=== PATIENT | female | born 1935 | race African-American/Black ===

== ENCOUNTER 2019-07-31 17:08 | Inpatient (IN) | payer OTHER ==
--- NOTE | 2019-07-31 17:26 | PDOC ---
History of Present Illness - General Stated Complaint: R/O STROKE Time Seen by Provider: 07/31/19 17:25 - History of Present Illness Initial Comments: HPI: 83yo F with PMH of HTN, DM, CVA with residual left sided weakness presenting with two episodes of syncope. Around 5:30pm, patient was speaking with her daughter on the phone when she suddenly felt room-spinning dizzines and was next found by her granddaughter on the floor. Patient was able to pick herself up and make her way to the bathroom. She next found herself slumped on the toilet after what was likely a syncopal episode. Her family member states they heard a loud "bump". Patient is feeling at her baseline. Denies shortness of breath and chest pain. No fevers or chills. PCP: Dr. Macario RAM: Constitutional: no fever, no chills HEENT: no throat pain, no dysphagia Cardiovascular: no chest pain, no palpitations Respiratory: no cough, no shortness of breath Gastrointestinal: no abdominal pain, no nausea Genitourinary: no dysuria, no hematuria Musculoskeletal: no myalgia, no arthralgia Skin: no rash, no itching Neurologic: +syncope, +dizziness Psych: no agitation, no anxiety PE: General: Awake, alert, and fully oriented, in no acute distress Head: No signs of trauma Eyes: EOMI, sclera anicteric ENT: Moist mucus membranes Neck: Normal ROM, supple Lungs: Lungs clear, Normal breath sounds Cardio: Regular rhythm, S1 and S2 present Abdomen: Soft, nontender Extremities: Normal range of motion, Distal pulses present SKIN: Warm, Dry, normal turgor Neurologic: Ptosis on right. Droop in smile on left side. Normal speech, sensation, strength, coordination, and gait. Please see NIHSS. ED Course/MDM: DDX includes but not limited to vasovagal syncope, cardiogenic syncope, metabolic syncope, neurogenic syncope, postural syncope, CVA, seizure NIHSS 2 Tpa exclusion criteria: symptoms are too mild Orthostatics Laying BP 117/72, HR 49 Sitting BP 118/60, HR 48 Standing BP 98/74, HR 52 EKG: rate 51, QTc 387, bradycardia, twi in V1/V2 (no previous EKGs) 07/31/19 17:26 Call to patient's grandson's , Will bring patient's medications 07/31/19 18:07 Patient with questionable facial droop on the left Dr Max spoke with Dr. Dinero; consult placed He will evaluate the patient tomorrow Treat orthostatic hypotension No ASA recommended Hold BP medications 07/31/19 18:27 CBC WBC 9.6 K/mm3 (4.0-10.0) 07/31/19 17:50 RBC 4.15 M/mm3 (3.60-5.2) 07/31/19 17:50 Hgb 11.2 GM/dL (10.7-15.3) 07/31/19 17:50 Hct 34.9 % (32.4-45.2) 07/31/19 17:50 MCV 84.1 fl (80-96) 07/31/19 17:50 MCH 27.1 pg (25.7-33.7) 07/31/19 17:50 MCHC 32.2 g/dl (32.0-36.0) 07/31/19 17:50 RDW 14.8 % (11.6-15.6) 07/31/19 17:50 Plt Count 398 K/MM3 (134-434) 07/31/19 17:50 MPV 8.9 fl (7.5-11.1) 07/31/19 17:50 Absolute Neuts (auto) 6.8 K/mm3 (1.5-8.0) 07/31/19 17:50 Neutrophils % 71.2 % (42.8-82.8) 07/31/19 17:50 Lymphocytes % 22.2 % (8-40) 07/31/19 17:50 Monocytes % 4.7 % (3.8-10.2) 07/31/19 17:50 Eosinophils % 0.9 % (0-4.5) 07/31/19 17:50 Basophils % 1.0 % (0-2.0) 07/31/19 17:50 Nucleated RBC % 0 % (0-0) 07/31/19 17:50 No leukocytosis CMP Sodium 135 mmol/L (136-145) L 07/31/19 17:50 Potassium 5.2 mmol/L (3.5-5.1) H 07/31/19 17:50 Chloride 99 mmol/L (98-107) 07/31/19 17:50 Carbon Dioxide 26 mmol/L (21-32) 07/31/19 17:50 Anion Gap 9 MMOL/L (8-16) 07/31/19 17:50 BUN 26.8 mg/dL (7-18) H 07/31/19 17:50 Creatinine 1.6 mg/dL (0.55-1.3) H 07/31/19 17:50 Est GFR (CKD-EPI)AfAm 34.66 07/31/19 17:50 Est GFR (CKD-EPI)NonAf 29.91 07/31/19 17:50 Random Glucose 264 mg/dL (74-106) H 07/31/19 17:50 Calcium 9.9 mg/dL (8.5-10.1) 07/31/19 17:50 Total Bilirubin 0.3 mg/dL (0.2-1) 07/31/19 17:50 AST 62 U/L (15-37) H 07/31/19 17:50 ALT 53 U/L (13-61) 07/31/19 17:50 Alkaline Phosphatase 54 U/L (45-117) 07/31/19 17:50 Creatine Kinase 147 U/L (26-192) 07/31/19 17:50 Troponin I < 0.02 ng/ml (0.00-0.05) 07/31/19 17:50 Total Protein 8.4 g/dl (6.4-8.2) H 07/31/19 17:50 Albumin 3.6 g/dl (3.4-5.0) 07/31/19 17:50 TSH 0.48 uIU/ml (0.358-3.74) 07/31/19 17:50 K mildly elevated, but slightly hemolyzed Cr elevated, unknown baseline Tpn undetectable TSH normal Family members are at the bedside. Patient's grandson's , Janice Diaz, states that the patient's smile is at baseline 07/31/19 19:31 Patient signed out to Dr. Tavares and night team 07/31/19 19:37 CT head and cspine as reported by imaging it service continuity supervisor: "FINDINGS: Age-related intracranial volume loss. No midline shift. Chronic microangiopathic ischemic changes in the white matter. Intracranial atherosclerosis. No acute intracranial hemorrhage or any abnormal acute extra-axial fluid collections. Rounded calcific density in the posterior medial left occipital lobe which may represent a calcified meningioma. Dural calcification seen in the left side more superiorly. Intact osseous calvarium. Clear mastoids and middle ear cavities. IMPRESSION: 1. No acute traumatic intracranial or osseous abnormality. 2. Probable calcified meningioma in the left posterior medial occipital lobe. 3. Chronic microangiopathic ischemic changes in the white matter. 4. Intracranial atherosclerosis. One or more of the following dose reduction techniques were used: automated exposure control, adjustment of the mA and/or kV according to patient size, use of iterative reconstructive technique. THIS DOCUMENT HAS BEEN ELECTRONICALLY SIGNED India Spears MD 07/31/2019 19:21 EST" Discussed case with Dr. Hank Shane who accepted patient for admission under Dr. Giang 07/31/19 20:01 tPA Exclusion Checklist 0-3hr - Time Elapsed Date last known well: 07/31/19 Time last known well: 16:30 Elaspsed time: Day(s) and 3 Hour(s) and 32 Minutes - Thrombolytic Therapy Candidate Is the patient eligible for Thrombolytic Therapy?: No - Relative Exclusion Criteria 0-3h Stroke severity too mild: Yes - Ineligibility reason(s) Reasons No tPA given: See reason(s) noted above NIH Stroke Scale - Last Known Well Date/Time & Onset Date Last Known Well: 07/31/19 Time Last Known Well: 16:30 - Initial Evaluation Level of consciousness: Alert Ask patient the month and their age: Answers both correctly Ask patient to open & close eyes; make fist and let go: Obeys both correctly Best gaze (horizontal eye movement): Normal Visual field testing: Partial hemianopia Facial paresis (Show teeth/raise eyebrows/close eyes tight): Minor paralysis ( flattened nasolabial fold, asymmetry on smiling) Motor Function: Left Arm: Normal Motor Function: Right Arm: Normal (extends arm 90 (or 45) degrees for 10 seconds without drift Motor Function: Left Leg: Normal (extends leg 30 degrees for 5 seconds without drift) Motor Function: Right Leg: Normal (extends leg 30 degrees for 5 seconds without drift) Limb Ataxia: No ataxia Sensory(Use pinprick test arms,legs,trunk,face/side to side): Normal Best language (Describe picture, name items, read sentences): No Aphasia Dysarthria (read several words): Normal articulation Extinction and Inattention: No abnormality - Total Score NIH Stroke Scale Score: 2 Past History - Past Medical History Allergies/Adverse Reactions: Allergies Allergy/AdvReac Type Severity Reaction Status Date / Time No Known Allergies Allergy Verified 07/31/19 17:33 ED Treatment Course - LABORATORY CBC & Chemistry Diagram: 07/31/19 17:50 07/31/19 17:50 Discharge - Discharge Information Problems reviewed: Yes Clinical Impression/Diagnosis: Syncope and collapse Condition: Guarded - Admission Yes - Follow up/Referral Referrals: ON STAFF,NOT [Primary Care Provider] - - Patient Discharge Instructions - Post Discharge Activity
[2019-07-31] MEDS ORDERED: SODIUM CHLORIDE 500 ML IV STA (17:54)
[2019-07-31 18:14] LABS: EOS % 0.9 % (0-4.5); HEMATOCRIT 34.9 % (32.4-45.2); HEMOGLOBIN 11.2 GM/dL (10.7-15.3); LYMPH % 22.2 % (8-40); MCH 27.1 pg (25.7-33.7); MCHC 32.2 g/dl (32.0-36.0); MEAN CELL VOLUME 84.1 fl (80-96); MEAN PLT VOLUME 8.9 fl (7.5-11.1); MONO % 4.7 % (3.8-10.2); NEUT % 71.2 % (42.8-82.8); PLATELET COUNT 398 K/MM3 (134-434); RBC 4.15 M/mm3 (3.60-5.2); RDW 14.8 % (11.6-15.6); WHITE BLOOD COUNT 9.6 K/mm3 (4.0-10.0)
--- NOTE | 2019-07-31 18:16 | PDOC ---
Documentation entered by Carrie Eastman SCRIBE, acting as scribe for Yolis Max DO. Yolis Max DO: This documentation has been prepared by the samibe, Carrie Eastman SCRIBE, under my direction and personally reviewed by me in its entirety. I confirm that the documentation accurately reflects all work, treatment, procedures, and medical decision making performed by me. Attending Attestation - Resident Resident Name: Veronica Padron - ED Attending Attestation I have performed the following: I have examined & evaluated the patient, The case was reviewed & discussed with the resident, I agree w/resident's findings & plan, Exceptions are as noted - HPI HPI: 07/31/19 18:19 The patient is an 83-year-old female with a past medical history significant for CVA with residual left facial droop who presents to the emergency department via EMS s/p two syncopal episode. The patient reports she felt lightheaded and dizzy, followed by a witnessed syncopal episode by the family. The patient was able to stand up, then she went to the bathroom. The family reports they heard a thud and found the patient syncopized on the toilet. Denies shortness of breath or chest pain. Allergies: NKA - Physicial Exam PE: 07/31/19 18:27 Constitutional: Awake, alert, oriented. No acute distress. Head: Normocephalic. Atraumatic Eyes: PERRL. EOMI. Conjunctivae are not pale. ENT: Mucous membranes are moist and intact. Posterior pharynx without exudates or erythema. Uvula midline. Neck: Supple. Full ROM. No lymphadenopathy. Cardiovascular: +bradycardic, Orthostatic hypertension positive. Regular rhythm. Pulmonary/Chest: No evidence of respiratory distress. Clear to auscultation bilaterally No wheezing, rales or rhonchi. Abdominal: Soft and non-distended. There is no tenderness. No rebound, guarding or rigidity. No organomegaly. No palpable masses. Good bowel sounds. Back: No CVA tenderness. Musculoskeletal: No edema. No cyanosis. No clubbing. Full range of motion in all extremities. Nocalf tenderness. Radial/pedal pulses are intact and 2+ bilaterally Skin: Skin is warm and dry. No petechiae. No purpura. Neurological: +slight left facial droop from prior CVA. Alert and oriented to person, place, and time. Normal speech. Strength is grossly symmetric. No sensory deficits. Psychiatric: Good eye contact. Normal interaction, affect and behavior. - Medical Decision Making 07/31/19 18:14 a/p: 83yo female with 2 syncopal episodes today -pt had 2 witnessed syncopal episodes -pt with ptosis R eye and poss L facial droop -prior hx of cva -pt with muscle strength 5/5 UE and LE -sensation intact -orthostatic hypotension- will order ivf hydration -resident discussed the case with Ms. Solo the granddaughter in law who is coming to the ER -head ct and c spine ordered -will send labs -ivf hydration 07/31/19 18:29 pt with hx of prior cva only neuro findings in L facial droop case discussed with Dr. nesbitt- pt to ct syncope was at 530 no tpa at this time, treat hypotension, hold bp meds he will see patient in consult 07/31/19 18:53 cr 1,6 07/31/19 18:[address] with calcifications, pending official read pt will need to stay in the hospital for further eval of syncope x 2, ivf hydration, neuro eval tomorrow
[2019-07-31 18:45] LABS: ALBUMIN 3.6 g/dl (3.4-5.0); ALK PHOS 54 U/L (45-117); ANION GAP 9 MMOL/L (8-16); BILIRUBIN,TOTAL 0.3 mg/dL (0.2-1); BLOOD UREA NITROGEN 26.8 mg/dL (7-18); CALCIUM 9.9 mg/dL (8.5-10.1); CHLORIDE 99 mmol/L (98-107); CO2 26 mmol/L (21-32); CREATININE 1.6 mg/dL (0.55-1.3); GLUCOSE,RANDOM 264 mg/dL (74-106); POTASSIUM 5.2 mmol/L (3.5-5.1); SGOT/AST 62 U/L (15-37); SGPT/ALT 53 U/L (13-61); SODIUM 135 mmol/L (136-145); TOT PROT 8.4 g/dl (6.4-8.2)
--- NOTE | 2019-07-31 20:04 | PN ---
Teaching Attending Note Name of Resident: Amaury Donaldson ATTENDING PHYSICIAN STATEMENT I saw and evaluated the patient. I reviewed the resident's note and discussed the case with the resident. I agree with the resident's findings and plan as documented. 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 Around 5:30 pm, patient was speaking with her daughter on the phone when she suddenly felt room-spinning, had dizziness and was next found by her granddaughter on the floor. Patient was able to pick herself up and make her way to the bathroom. She next found herself slumped on the toilet after what was likely a syncopal episode. Her family member states they heard a loud "bump". Patient is feeling at her baseline. Denies shortness of breath and chest pain. No fevers or chills. Has a walker and cane, but ambulates at home without assistance. Denies alcohol, tobacco or illicit drug use. No sick contacts or recent travels. Feeling hungry and wants to eat. OBJECTIVE: Alert and orthostatic Vital Signs Period Temp Pulse Resp BP Sys/[place] Pulse Ox Last 24 Hr 97.2 F 51 16 126/57 98-100 HEENT: No Jaundice, eye redness or discharge, Left facial droop; Right eye ptosis and blindness. Normocephalic, atraumatic. External ears are normal and hearing is grossly intact. No nasal discharge. Neck: Supple, nontender. No palpable adenopathy or thyromegaly. No JVD Chest: Good effort. Clear to auscultation and percussion. Heart: Regular. No S3, rub or murmur Abdomen: Not distended, soft, nontender and no HSM. No rebound or guarding. Normal bowel sounds. Ext: Peripheral pulses intact. No leg edema. Skin: Warm and dry. No petechiae, rash or ecchymosis. Neuro: Alert. Oriented x3. CN 2-12 grossly intact. Sensation grossly intact in all four extremities and DTR are symmetric. Psych: Appropriate mood and affect. Good insight. Abnormal Lab Results 07/31/19 17:50 Sodium 135 L Potassium 5.2 H BUN 26.8 H Creatinine 1.6 H Random Glucose 264 H AST 62 H Total Protein 8.4 H ASSESSMENT AND PLAN: 1. Syncope - Etiology unclear. No acute abnormality on head CT or C-spine CT. Calcified meningioma and goiter with ?tracheal impingement noted. CXR shows cardiomegaly, hilar prominence and blunted left costophrenic angle. EKG shows junctional rhythm at 51/minute and no significant ST-T wave changes. Initial troponin is negative. Will admit to telemetry, do speech and swallow evaluation , get urinalysis, ECHO, carotid doppler, brain MRI, consult Neurology, Cardiology and PT. Do neurochecks. Implement seizure, fall and aspiration precautions. Will get thyroid sonogram, TFT and consult Endocrine. Will continue comprehensive care for all of patients comorbid conditions. 2. Uncontrolled DM For now, we will hold the home diabetes drugs and implement sliding scale insulin regimen. Provide comprehensive diabetes care with patient teaching and counseling about the importance of adherence to prescribed diabetes regimen, euglycemia, eye care and foot care. 3. CKD? - Has risk factors for CKD. Will get CPK, kidney sonogram, PTH and phosphate. 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 Should improve with correction of hyperglycemia and hydration. Got 500 ml of IV NS in the ER. Will encourage liberal oral fluid intake and monitor urine output. Will consult nephrology and avoid nephrotoxic agents such as NSAIDS, aminoglycosides, contrast dyes and certain Alternative medicine products. 4. Obesity Counseled on the risks associated with obesity. Will provide patient all the necessary assistance, counseling and positive reinforcement to facilitate weight loss. Consult rental management trainee. 5. Hypertension - Restart suitable outpatient antihypertensive drugs when clinically appropriate. Revise regimen to ensure [id number] excellent BP control and financial services counselor patient on the injurious effects of uncontrolled hypertension. Nonpharmacologic measures to control hypertension like weight loss , salt restriction and exercise discussed. Importance of adherence to treatment regimen and attainment of normotension emphasized. 6. DVT prophylaxis - Lovenox 40 mg SQ q 24 hours. 7. Advance directives - Full code
--- NOTE | 2019-07-31 20:46 | HP ---
CHIEF COMPLAINT: Presyncope and syncopal episode today PCP: Dr. Rodriguez HISTORY OF PRESENT ILLNESS: This is an 83 year old female with PMH of HTN, DM, CVA (with residual L sided weakness). She presented to the ER with complaints of 1 episode of presyncope and 1 episode of syncope within a few minutes of each other. As per the patient , she was in the kitchen at around 4PM with her grand daughter, when she suddenly began to feel diaphoretic and dizzy. She then fell down, not losing consciousness and without hitting her head, although she admits that she does not remember the event in detail. According to the grand daughter, who's back was turned to the patient during the incident, she heard a loud 'thud' behind her and suspects that her grand mother did hit her head as she fell. The patient denies any pain in her head, hands, or any part of her body. After the fall, she got back up and walked to the bathroom. She seated herself on the commode in order to defecated. She then felt dizzy and weak, and leaned over to the sink in order to rest her head. She then remembers being fond by her grand daughter again. She then cleaned up, and went to her bedroom to rest. Upon returning home, the daughter insisted that the patient be taken to the ER, even though she stated that she felt fine. As per the patient, before coming to the ER she walked down 3 flights of stairs by herself to the car without any symptoms. At the ER, she reports no dizziness, diaphoresis, nausea, vomiting, constipation, chest pain, palpitations, SOB, light headedness, headaches, dysuria, urgency, hematuria, recent illnesses, recent travel, or sick contacts. She had a hemorrhagic stroke in 2012, and reports feeling weak at the time. She was admitted at [facility] for 1 month at the time, and has residual left sided weakness as per the patient. She reports a right sided facial injury many years ago in [place] when she was very young, which left her with asymmetrical facial expressions. She has had a hysterectomy in the past. She denies any family history of heart disease, strokes, or cancer. She lives with her daughter , and denies ever smoking, drinking, or using recreational drugs. ER course was notable for: (1) CT Head: Calcififed meningioma in left occipital lobe (2) C Spine shows osteophyte impingement and left lobe goiter (3) BUN/Cr 26.8/1.6 Recent Travel: Denies PAST MEDICAL HISTORY: HTN, DM, CVA PAST SURGICAL HISTORY: Hysterectomy Social History: Smoking: denies Alcohol: denies Drugs: denies Allergies No Known Allergies Allergy (Verified 07/31/19 17:33) HOME MEDICATIONS: REVIEW OF SYSTEMS CONSTITUTIONAL: Absent: fever, chills, diaphoresis, generalized weakness, malaise, loss of appetite, weight change HEENT: Absent: rhinorrhea, nasal congestion, throat pain, throat swelling, difficulty swallowing, mouth swelling, ear pain, eye pain, visual changes CARDIOVASCULAR: Absent: chest pain, syncope, palpitations, irregular heart rate, lightheadedness , peripheral edema RESPIRATORY: Absent: cough, shortness of breath, dyspnea with exertion, orthopnea, wheezing, stridor, hemoptysis GASTROINTESTINAL: Absent: abdominal pain, abdominal distension, nausea, vomiting, diarrhea, constipation, melena, hematochezia GENITOURINARY: Absent: dysuria, frequency, urgency, hesitancy, hematuria, flank pain, genital pain MUSCULOSKELETAL: Absent: myalgia, arthralgia, joint swelling, back pain, neck pain SKIN: Absent: rash, itching, pallor HEMATOLOGIC/IMMUNOLOGIC: Absent: easy bleeding, easy bruising, lymphadenopathy, frequent infections ENDOCRINE: Absent: unexplained weight gain, unexplained weight loss, heat intolerance, cold intolerance NEUROLOGIC: Absent: headache, focal weakness or paresthesias, dizziness, unsteady gait, seizure, mental status changes, bladder or bowel incontinence PSYCHIATRIC: Absent: anxiety, depression, suicidal or homicidal ideation, hallucinations. PHYSICAL EXAMINATION Vital Signs - 24 hr 07/31/19 07/31/19 17:10 17:37 Temperature 97.2 F L Pulse Rate 51 L Respiratory 16 Rate Blood Pressure 126/57 L O2 Sat by Pulse 100 98 Oximetry (%) GENERAL: AOx3, cooperative HEAD: Normal with no signs of trauma. EYES: Rt. sided corneal clouding, blind in Rt eye, left eye reactive to light, EOMI intact EARS, NOSE, THROAT: Ears normal, nares patent, oropharynx clear without exudates. Moist mucous membranes. LUNGS: Breath sounds equal, clear to auscultation bilaterally. No wheezes, and no crackles. No accessory muscle use. HEART: Bradycardic, regular rhythm, normal S1 and S2 without murmur, rub or gallop. ABDOMEN: Soft, nontender, not distended, normoactive bowel sounds, no guarding, no rebound, no masses. No hepatomegaly or splenomegaly. MUSCULOSKELETAL: Normal range of motion at all joints. No bony deformities or tenderness. No CVA tenderness. UPPER EXTREMITIES: 2+ pulses, warm, well-perfused. No cyanosis. No clubbing. No peripheral edema. LOWER EXTREMITIES: 2+ pulses, warm, well-perfused. No calf tenderness. No peripheral edema. NEUROLOGICAL: Motor 5/5, sensations intatc PSYCHIATRIC: Cooperative. Good eye contact. Appropriate mood and affect. SKIN: Warm, dry, normal turgor, no rashes or lesions noted, normal capillary refill. Laboratory Results - last 24 hr 07/31/19 07/31/19 07/31/19 17:50 17:50 17:50 WBC 9.6 RBC 4.15 Hgb 11.2 Hct 34.9 MCV 84.1 MCH 27.1 MCHC 32.2 RDW 14.8 Plt Count 398 MPV 8.9 Absolute Neuts (auto) 6.8 Neutrophils % 71.2 Lymphocytes % 22.2 Monocytes % 4.7 Eosinophils % 0.9 Basophils % 1.0 Nucleated RBC % 0 PT with INR Cancelled INR Cancelled Sodium 135 L Potassium 5.2 H Chloride 99 Carbon Dioxide 26 Anion Gap 9 BUN 26.8 H Creatinine 1.6 H Est GFR (CKD-EPI)AfAm 34.66 Est GFR (CKD-EPI)NonAf 29.91 Random Glucose 264 H Calcium 9.9 Total Bilirubin 0.3 AST 62 H ALT 53 Alkaline Phosphatase 54 Creatine Kinase 147 Troponin I < 0.02 Total Protein 8.4 H Albumin 3.6 TSH 0.48 ASSESSMENT/PLAN: 83 year old female with PMH of HTN, DM, CVA (with residual L sided weakness). She presented to the ER with complaints of 1 episode of presyncope and 1 episode of syncope within a few minutes of each other earlier today. #Syncope - Syncope vs other causes of LOC - Syncopal causes: reflex, structural cardiac, arrhythmia, orthostatic - Structural: Echo ordered to r/o cardiac functional/structural causes, no previous echo to compare to BNP ordered, studies suggest BNP may be predictive of those at risk for adverse outcomes following syncope - Orthostatic: Orthostatics: Positive, Supine: 117/72 HR 49, Sitting 118/60 48, Standin/74 HR 52, may have been 2/2 orthostatic hypotension - Arrythmia: EKG 51BPM, bradycardia, syncope may have been 2/2 AV block - Reflex: Prodrome of diaphoresis and dizziness was positive, along with increased vasovagal tone during defecation in patient - Other causes: head trauma, seizures, intoxications, or metabolic disorders - Trauma: No history of recent trauma and CT was clear. Brain MRI ordered, speech and swallow eval ordered - Seizures: Pt experienced no aura, post ictal symptoms, abnormal movements, seizure unlikely - Intoxicants: Patient denies any new meds - Metabolic disorders: Na 135 and K 5.2, slightly out of normal range, no signs of hypoxia, hyperventilation with hypocapnia, unlikely to cause syncope - CT Head: Calcified meningioma in L occipital lobe - CT C-spine: L lobe goiter, osteophyte impingement - Neuro consulted #Bradycardia - EKG: - Might be causing syncope - Echo ordered - Cardio consulted #Goiter - Incidental finding of L lobe goiter on CT C spine - TSH ordered - Thyroid US outpatient - Endo consulted #Osteophyte impingement - Incidental finding of CT C-spine - Pt denies any numbness, tingling - Neurosurgery consulted #CKD - BUN/Cr 26.8/1.6 - No prior records to compare with - UA pending - Renal US ordered - Nephro consult placed #Hx of HTN - Resume home meds once confirmed IF required (patient bradycardic with low diastolic BP at the moment) #Hx of DM - BGM and ISS ACHS started - HbA1c ordered #Elevated AST - Mild elevation with negative exam findings and no symptoms - Will monito and order Liver US #FEN - Na 135, will monitor - K 5.2, will monitor - Na controlled diet started #DVT - Lovenox 40mg Visit type - Emergency Visit Emergency Visit: Yes ED Registration Date: 07/31/19 Care time: The patient presented to the Emergency Department on the above date and was hospitalized for further evaluation of their emergent condition. - New Patient This patient is new to me today: Yes Date on this admission: 08/01/19 - Critical Care Critical Care patient: No ATTENDING PHYSICIAN STATEMENT I saw and evaluated the patient. I reviewed the resident's note and discussed the case with the resident. I agree with the resident's findings and plan as documented. SUBJECTIVE: OBJECTIVE: ASSESSMENT AND PLAN:
[2019-07-31 21:12] LABS: EPI CELLS 23.8 /HPF (0-5/HPF); HYALINE CASTS 31 /lpf (0-8); PH,URINE 6.5 (5.0-8.0); URINE APPEARANCE TURBID; URINE BILIRUBIN NEGATIVE (NEGATIVE); URINE COLOR YELLOW; URINE GLUCOSE (UA) NEGATIVE (NEGATIVE); URINE KETONE TRACE (NEGATIVE); URINE LEUK ESTERASE 3+ (NEGATIVE); URINE NITRITE NEGATIVE (NEGATIVE); URINE PROTEIN 1+ (NEGATIVE); URINE RBC 5 /hpf (0-4); URINE UROBILINOGEN 0.2 mg/dL (0.2-1.0); URINE WBC 78 /hpf (0-5)
[2019-07-31 21:59] LABS: URINE CRYSTALS NEGATIVE /hpf; YEAST NEGATIVE (NEGATIVE)
[2019-07-31 22:00] LABS: URINE BACTERIA 50 /hpf (NEGATIVE)
[2019-07-31] MEDS: SODIUM CHLORIDE 1,000 ML IV SCH (22:45)
[2019-07-31] MEDS: INSULIN SLIDING SCALE (NOVOLOG) 1 VIAL SQ SCH (23:12)
[2019-07-31] MEDS ORDERED: INSULIN (NOVOLOG) ASPART 100 UNITS/ML 10ML VIAL ONE (23:14)
[2019-08-01 06:25] LABS: BASO % 0.7 % (0-2.0); HEMATOCRIT 32.4 % (32.4-45.2); HEMOGLOBIN 10.6 GM/dL (10.7-15.3); LYMPH % 31.9 % (8-40); MCHC 32.6 g/dl (32.0-36.0); MEAN CELL VOLUME 82.8 fl (80-96); MEAN PLT VOLUME 8.4 fl (7.5-11.1); MONO % 6.7 % (3.8-10.2); NEUT % 59.7 % (42.8-82.8); PLATELET COUNT 340 K/MM3 (134-434); RBC 3.91 M/mm3 (3.60-5.2); RDW 14.6 % (11.6-15.6); WHITE BLOOD COUNT 8.3 K/mm3 (4.0-10.0)
[2019-08-01 06:47] LABS: ALBUMIN 3.5 g/dl (3.4-5.0); BILIRUBIN,TOTAL 0.4 mg/dL (0.2-1); CALCIUM 9.8 mg/dL (8.5-10.1); CREATININE 1.1 mg/dL (0.55-1.3); MAGNESIUM 1.7 mg/dL (1.8-2.4); PHOSPHOROUS 3.1 mg/dL (2.5-4.9); POTASSIUM 3.6 mmol/L (3.5-5.1); TOT PROT 7.6 g/dl (6.4-8.2)
--- NOTE | 2019-08-01 09:12 | EKG ---
Test Reason : Blood Pressure : / mmHG Vent. Rate : 082 BPM Atrial Rate : 082 BPM P-R Int : 180 ms QRS Dur : 100 ms QT Int : 374 ms P-R-T Axes : 061 028 019 degrees QTc Int : 436 ms NORMAL SINUS RHYTHM NORMAL ECG WHEN COMPARED WITH ECG OF 31-JUL-2019 17:22, SINUS RHYTHM HAS REPLACED JUNCTIONAL RHYTHM VENT. RATE HAS INCREASED BY 31 BPM Confirmed by Sonal Alarcon ([id number]) on 08/01/2019 9:12:10 AM Referred By: Confirmed By:Sonal Alarcon
--- NOTE | 2019-08-01 09:17 | EKG ---
Test Reason : Blood Pressure : / mmHG Vent. Rate : 051 BPM Atrial Rate : 045 BPM P-R Int : 000 ms QRS Dur : 084 ms QT Int : 420 ms P-R-T Axes : 000 046 036 degrees QTc Int : 387 ms JUNCTIONAL RHYTHM ABNORMAL ECG NO PREVIOUS ECGS AVAILABLE Confirmed by Sonal Alarcon ([id number]) on 08/01/2019 9:17:08 AM Referred By: Confirmed By:Sonal Alarcon
--- NOTE | 2019-08-01 09:37 | CON.CARD ---
Consult Consult Specialty:: CV - History of Present Illness Chief Complaint: syncope History of Present Illness: 83 F here with syncope. pt was standing in the kitchen at around 4PM with her granddaughter nearby. she suddenly began to feel diaphoretic and dizzy--fell down. pt denies losing consciousness, although she could not recall all details surrounding the actual fall. granddaughter was nearby but looking in a different direction, heard loud noise when pt fell. pt got to her feet on her own and felt need to defecate--went to bathroom. after BM she felt dizzy and weak, leaned over to the sink in order to rest her head--next memory is granddtr finding her in bathroom. pt went to lay down and rest. felt fine after several moments but came to ER to be evaluated. describes the prodrome as a tidwell sensation through her head. no assctd neuro deficit she says. denies flushing/diaphoresis/chills feeling. 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) - Alcohol/Substance Use Hx Alcohol Use: No - Smoking History Smoking history: Never smoked Home Medications - Allergies Allergies/Adverse Reactions: Allergies Allergy/AdvReac Type Severity Reaction Status Date / Time No Known Allergies Allergy Verified 07/31/19 17:33 - Home Medications Home Medications: Ambulatory Orders Acetaminophen [Mapap] 500 mg PO Q6H PRN 07/31/19 Alendronate Sodium 70 mg PO DAILY 07/31/19 Aspirin [ASA -] 81 mg PO DAILY 07/31/19 Calcium Carbonate [Calcium] 500 mg PO DAILY 07/31/19 Cholecalciferol (Vitamin D3) [Vitamin D3] 2,000 unit PO DAILY 07/31/19 Metoprolol Tartrate 100 mg PO DAILY 07/31/19 Naproxen 250 mg PO BID 07/31/19 Nifedipine ER [Procardia Xl -] 90 mg PO DAILY 07/31/19 Sitagliptin Phos/Metformin HCl [Janumet Xr 100-1,000 mg Tablet] 1 tab PO DAILY 07/31/19 Telmisartan 20 mg PO DAILY 07/31/19 Family Medical History Family History: Denies (no known cmp) Review of Systems - Review of Systems Constitutional: reports: Weakness. denies: Chills, Fever Eyes: denies: Eye Pain HENT: denies: Nasal Congestion Neck: denies: Stiffness Cardiovascular: denies: Palpitations Respiratory: denies: Orthopnea, PND Gastrointestinal: denies: Diarrhea, Rectal Bleeding Genitourinary: denies: Burning, Hematuria Musculoskeletal: denies: Muscle Pain Integumentary: denies: Rash Neurological: reports: Syncope. denies: Numbness, Seizure Endocrine: denies: Excessive Sweating Hematology/Lymphatic: denies: Excessive Bleeding Vital Signs: Vital Signs Temperature 98.0 F 08/01/19 02:35 Pulse Rate 74 08/01/19 07:15 Respiratory Rate 16 08/01/19 07:15 Blood Pressure 139/71 08/01/19 07:15 O2 Sat by Pulse Oximetry (%) 100 08/01/19 07:15 Constitutional: Yes: Well Nourished, No Distress, Other (dried urine odor) Eyes: No: Sclera Icterus HENT: No: Nasal Congestion Neck: No: Decreased ROM Respiratory: Yes: CTA Bilaterally. No: Accessory Muscle Use, Rales, Wheezes Gastrointestinal: Yes: Normal Bowel Sounds. No: Distention, Hepatomegaly, Palpable Mass, Tenderness Cardiovascular: Yes: Regular Rate and Rhythm JVD: No Carotid Bruit: No PMI: Non-Displaced Heart Sounds: Yes: S1, S2. No: Gallop Murmur: No: Systolic Murmur, Diastolic Murmur Musculoskeletal: Yes: Other (No kyphosis) Extremities: No: Cool, Cyanosis Edema: No Peripheral Pulses: 2+ Left Carotid, 2+ Right Carotid, 2+ Left Doralis Pedis, 2+ Right Dorsalis Pedis Integumentary: No: Jaundice Neurological: Yes: Alert, Oriented (x3) Psychiatric: No: Agitated - Other Data Labs, Other Data: CBC, BMP 08/01/19 05:30 08/01/19 05:30 INR, PTT INR Cancelled 07/31/19 17:50 Troponin, BNP 07/31/19 08/01/19 17:50 05:30 Troponin I < 0.02 B-Natriuretic Peptide 1214.6 H Troponin, BNP 07/31/19 08/01/19 17:50 05:30 Troponin I < 0.02 B-Natriuretic Peptide 1214.6 H Assessment/Plan ECG #1: junctional rhythm (51 bpm) with marked sinus jose de jesus/sinus arrest in background; nonspecific terminal QRS-ST abnormality; nonsp ST-T septal leads ( no prior #2: NSR, normal CXR: cardomeg; clear lungs/pleura CT head: no acute pathology syncope: -vagal features present including vol depleted labs likely on admit, bowel urgency following. however presented in junctional rhythm at stable HR, raising suspicion of higher degree of heart block during initial episode -no ischemic ecg findings, trop neg x 1--rpt ordered -echo -TSH normal -her presenting rhythm was stable and not a culprit for syncope--? if had sinus disease at home without reliable escape rhythm when syncopized -rec continue tele -rec EP consult (Dr. Olea aware, he will see pt) -if tele stable, ? outpt loop recorder HTN: -bp stable -avoid AVN blockers (conduction system dz) DM: -per hospitalist ANA: -resolved overnight with hydration -trend labs
[2019-08-01] MEDS ORDERED: PATIENT'S OWN MEDICATION (NON-FORMULARY) (Alendronate Sodium [Alendronate Sodium] 70 MG) PO SCH (10:00)
[2019-08-01] MEDS: ASPIRIN 81 MG CHEWABLE TABLETS PO SCH (11:00)
[2019-08-01] MEDS: VALSARTAN 80 MG TABLET (UD) PO SCH (11:00)
[2019-08-01] MEDS: CALCIUM (OYSTER SHELL) 500 MG TABLET (FP) PO SCH (11:00)
[2019-08-01] MEDS: ENOXAPARIN NA (PORCINE) 40 MG/0.4 ML DISP.SYRIN SQ SCH (11:00)
[2019-08-01] MEDS: CHOLECALCIFEROL (VIT D3) 1,000 UNIT (25 MCG) TABLET PO SCH (11:00)
[2019-08-01] MEDS: NIFEdipine E.R. 90 MG TABLET PO SCH (11:00)
[2019-08-01] MEDS: INSULIN SLIDING SCALE (NOVOLOG) 1 VIAL SQ SCH ×4 (11:48→22:21)
--- NOTE | 2019-08-01 15:41 | ECHO ---
Name: RODRIGUE MCDONOUGH Exam:Adult Echocardiogram Study Date: 08/01/2019 01:37 PM Age: 83 yrs Reason For Study: SYNCOPE Height: 62 in Weight: 172 lb BSA: 1.8 m2 MMode/2D Measurements & Calculations IVSd: 1.0 cm Ao root diam: 2.9 cm LVIDd: 3.5 cm LA dimension: 2.9 cm LVIDs: 2.5 cm LVPWd: 1.1 cm LVPWs: 1.4 cm EDV(Teich): 52.0 ml ESV(Teich): 22.0 ml LVOT diam: 1.7 cm RV S Edy: 11.0 cm/sec Doppler Measurements & Calculations MV E max edy: 47.1 cm/sec Ao V2 max: 145.6 cm/sec MV A max edy: 92.2 cm/sec Ao max P.5 mmHg MV E/A: 0.51 MV dec time: 0.15 sec CAROLINE(V,D): 1.7 cm2 LV V1 max P.0 mmHg TR max edy: 265.3 cm/sec LV V1 max: 111.6 cm/sec TR max P.2 mmHg PA V2 max: 93.8 cm/sec PI end-d edy: 114.0 cm/sec PA max P.5 mmHg Med Peak E' Edy: 5.0 cm/sec Med E/e': 9.4 Lat Peak E' Edy: 6.4 cm/sec Lat E/e': 7.3 Procedure The study was technically difficult with many images being suboptimal in quality. Left Ventricle The left ventricle is normal in size. There is mild concentric left ventricular hypertrophy. Left lonnie tricular systolic function is normal. Ejection Fraction = 60-65%. The transmitral spectral Doppler flow patter n is suggestive of impaired LV relaxation. Right Ventricle The right ventricle is grossly normal size. The right ventricular systolic function is grossly normal . Atria The left atrial size is normal. Right atrial size is normal. Mitral Valve The mitral valve is grossly normal. Tricuspid Valve The tricuspid valve is not well visualized, but is grossly normal. There is Trace to mild tricuspid regurgitation. Aortic Valve The aortic valve is not well visualized. The aortic valve is normal in structure and function. Pulmonic Valve The pulmonic valve is not well seen, but is grossly normal. Mild pulmonic valvular regurgitation. Great Vessels The aortic root is normal size. Pericardium/Pleura There is no pericardial effusion. Interpretation Summary LV: Normal size,mild LVH,normal systolic function, EF:60-65%, Relaxation abnormality RV: Grossly normal No significant valvular dysfunction. Sonal Alarcon 08/01/2019 03:40 PM
--- NOTE | 2019-08-01 16:03 | PN ---
Physical Exam: SUBJECTIVE: Patient seen and examined. patient offers no complaints at this time. She clarified to me that she passed out when she was getting bad news about her son in [place]. Denies chest pain, sob, nausea, vomiting, dizziness. OBJECTIVE: Vital Signs Period Temp Pulse Resp BP Sys/[place] Pulse Ox Last 24 Hr 97.2 F-98.0 F 51-78 15-18 123-139/56-87 98-100 GENERAL: a/o x 3, comfortable, in nad HEAD: Normal with no signs of trauma. EYES: PERRL, extraocular movements intact, sclera anicteric, conjunctiva clear. ENT: oropharynx clear without exudates, moist mucous membranes. NECK: supple. LUNGS: Breath sounds equal, clear to auscultation bilaterally, no wheezes, no crackles HEART: Regular rate and rhythm, S1, S2 without murmur, rub or gallop. ABDOMEN: Soft, nontender, nondistended, normoactive bowel sounds EXTREMITIES: 2+ pulses, warm, well-perfused, no edema. NEUROLOGICAL: Cranial nerves II through XII grossly intact. Laboratory Results - last 24 hr 07/31/19 07/31/19 07/31/19 17:50 17:50 17:50 WBC 9.6 Corrected WBC (auto) RBC 4.15 Hgb 11.2 Hct 34.9 MCV 84.1 MCH 27.1 MCHC 32.2 RDW 14.8 Plt Count 398 MPV 8.9 Absolute Neuts (auto) 6.8 Neutrophils % 71.2 Lymphocytes % 22.2 Monocytes % 4.7 Eosinophils % 0.9 Basophils % 1.0 Nucleated RBC % 0 Manual Slide Review Platelet Comment PT with INR Cancelled INR Cancelled Sodium 135 L Potassium 5.2 H Chloride 99 Carbon Dioxide 26 Anion Gap 9 BUN 26.8 H Creatinine 1.6 H Est GFR (CKD-EPI)AfAm 34.66 Est GFR (CKD-EPI)NonAf 29.91 POC Glucometer Random Glucose 264 H Hemoglobin A1c % Calcium 9.9 Phosphorus Magnesium Total Bilirubin 0.3 AST 62 H ALT 53 Alkaline Phosphatase 54 Creatine Kinase 147 Troponin I < 0.02 B-Natriuretic Peptide Total Protein 8.4 H Albumin 3.6 TSH 0.48 Free T4 Urine Color Urine Appearance Urine pH Ur Specific [place] Urine Protein Urine Glucose (UA) Urine Ketones Urine Blood Urine Nitrite Urine Bilirubin Urine Urobilinogen Ur Leukocyte Esterase Urine WBC (Auto) Urine RBC (Auto) Urine Casts (Auto) U Pathogenic Cast Auto U Epithel Cells (Auto) U Sm Round Cell (Auto) Urine Crystals (Auto) Urine Bacteria (Auto) Urine Yeast (Auto) 07/31/19 07/31/19 08/01/19 21:00 22:59 05:30 WBC Corrected WBC (auto) RBC Hgb Hct MCV MCH MCHC RDW Plt Count MPV Absolute Neuts (auto) Neutrophils % Lymphocytes % Monocytes % Eosinophils % Basophils % Nucleated RBC % Manual Slide Review Platelet Comment PT with INR INR Sodium 139 Potassium 3.6 Chloride 105 Carbon Dioxide 29 Anion Gap 6 L BUN 21.0 H Creatinine 1.1 Est GFR (CKD-EPI)AfAm 54.53 Est GFR (CKD-EPI)NonAf 47.05 POC Glucometer 204 Random Glucose 94 Hemoglobin A1c % Calcium 9.8 Phosphorus 3.1 Magnesium 1.7 L Total Bilirubin 0.4 AST 26 ALT 44 Alkaline Phosphatase 51 Creatine Kinase Troponin I B-Natriuretic Peptide Total Protein 7.6 Albumin 3.5 TSH Free T4 0.99 Urine Color Yellow Urine Appearance Turbid Urine pH 6.5 Ur Specific [place] 1.014 Urine Protein 1+ H Urine Glucose (UA) Negative Urine Ketones Trace H Urine Blood Negative Urine Nitrite Negative Urine Bilirubin Negative Urine Urobilinogen 0.2 Ur Leukocyte Esterase 3+ H Urine WBC (Auto) 78 Urine RBC (Auto) 5 Urine Casts (Auto) 31 U Pathogenic Cast Auto Negative U Epithel Cells (Auto) 23.8 U Sm Round Cell (Auto) Wbc's Urine Crystals (Auto) Negative Urine Bacteria (Auto) 50 Urine Yeast (Auto) Negative 08/01/19 08/01/19 08/01/19 05:30 05:30 05:30 WBC Cancelled Corrected WBC (auto) Cancelled RBC Cancelled Hgb Cancelled Hct Cancelled MCV Cancelled MCH Cancelled MCHC Cancelled RDW Cancelled Plt Count Cancelled MPV Cancelled Absolute Neuts (auto) Neutrophils % Lymphocytes % Monocytes % Eosinophils % Basophils % Nucleated RBC % Manual Slide Review Cancelled Platelet Comment Cancelled PT with INR INR Sodium Potassium Chloride Carbon Dioxide Anion Gap BUN Creatinine Est GFR (CKD-EPI)AfAm Est GFR (CKD-EPI)NonAf POC Glucometer Random Glucose Hemoglobin A1c % 7.3 H Calcium Phosphorus Magnesium Total Bilirubin AST ALT Alkaline Phosphatase Creatine Kinase Troponin I B-Natriuretic Peptide 1214.6 H Total Protein Albumin TSH Free T4 Urine Color Urine Appearance Urine pH Ur Specific [place] Urine Protein Urine Glucose (UA) Urine Ketones Urine Blood Urine Nitrite Urine Bilirubin Urine Urobilinogen Ur Leukocyte Esterase Urine WBC (Auto) Urine RBC (Auto) Urine Casts (Auto) U Pathogenic Cast Auto U Epithel Cells (Auto) U Sm Round Cell (Auto) Urine Crystals (Auto) Urine Bacteria (Auto) Urine Yeast (Auto) 08/01/19 08/01/19 05:30 13:17 WBC 8.3 Corrected WBC (auto) RBC 3.91 Hgb 10.6 L Hct 32.4 MCV 82.8 MCH 27.0 MCHC 32.6 RDW 14.6 Plt Count 340 MPV 8.4 Absolute Neuts (auto) 5.0 Neutrophils % 59.7 Lymphocytes % 31.9 D Monocytes % 6.7 Eosinophils % 1.0 Basophils % 0.7 Nucleated RBC % 0 Manual Slide Review Platelet Comment PT with INR INR Sodium Potassium Chloride Carbon Dioxide Anion Gap BUN Creatinine Est GFR (CKD-EPI)AfAm Est GFR (CKD-EPI)NonAf POC Glucometer 177 Random Glucose Hemoglobin A1c % Calcium Phosphorus Magnesium Total Bilirubin AST ALT Alkaline Phosphatase Creatine Kinase Troponin I B-Natriuretic Peptide Total Protein Albumin TSH Free T4 Urine Color Urine Appearance Urine pH Ur Specific [place] Urine Protein Urine Glucose (UA) Urine Ketones Urine Blood Urine Nitrite Urine Bilirubin Urine Urobilinogen Ur Leukocyte Esterase Urine WBC (Auto) Urine RBC (Auto) Urine Casts (Auto) U Pathogenic Cast Auto U Epithel Cells (Auto) U Sm Round Cell (Auto) Urine Crystals (Auto) Urine Bacteria (Auto) Urine Yeast (Auto) Active Medications Generic Name Dose Route Start Last Admin Trade Name Freq PRN Reason Stop Dose Admin Aspirin 81 mg 08/01/19 10:08/01/19 11:00 Asa - PO 81 mg DAILY CAROLYN Administration Calcium Carbonate 500 mg 08/01/19 10:08/01/19 11:00 Os-Marcelino 500mg - PO 500 mg DAILY CAROLYN Administration Cholecalciferol 2,000 unit 08/01/19 10:00 08/01/19 11:00 Vitamin D3 - PO 2,000 unit DAILY CAROLYN Administration Enoxaparin Sodium 40 mg 08/01/19 10:00 08/01/19 11:00 Lovenox - SQ 40 mg DAILY CAROLYN Administration Sodium Chloride 1,000 mls @ 83 mls/hr 07/31/19 22:30 07/31/19 22:45 Normal Saline - IV 83 mls/hr ASDIR CAROLYN Administration Insulin Aspart 1 vial 07/31/19 22:00 08/01/19 15:03 Novolog Vial Sliding Scale - SQ 2 units ACHS CAROLYN Administration Protocol Nifedipine 90 mg 08/01/19 10:00 08/01/19 11:00 Procardia Xl - PO 90 mg DAILY CAROLYN Administration Valsartan 80 mg 08/01/19 10:00 08/01/19 11:00 Diovan - PO 80 mg DAILY CAROLYN Administration ASSESSMENT/PLAN: 83 year old female with PMH of HTN, DM, CVA (with residual L sided weakness). She presented to the ER with complaints of 1 episode of presyncope and 1 episode of syncope within a few minutes of each other earlier today. #Near Syncope -likely vasovagal. per cardio: --vagal features present including vol depleted labs likely on admit, bowel urgency following. however presented in junctional rhythm at stable HR, raising suspicion of higher degree of heart block during initial episode -echo unremarkable. -EKG 51BPM, bradycardia, syncope may have been 2/2 AV block -Reflex: Prodrome of diaphoresis and dizziness was positive, along with increased vasovagal tone during defecation in patient - CT Head: Calcified meningioma in L occipital lobe - CT C-spine: L lobe goiter, osteophyte impingement - Neuro consulted -EP consult (Dr. Olea aware, he will see pt) -telemonitoring -orthostatic vs #Goiter - Incidental finding of L lobe goiter on CT C spine - TSH normal - Thyroid US outpatient - Endo consulted #Osteophyte impingement - Incidental finding of CT C-spine - Pt denies any numbness, tingling - Neurosurgery consulted #ANA ?on CKD? -cr now 1.1 from 1.6. resolved - Nephro on board #Hx of HTN -stable -avoid AVN blockers (conduction system dz) #Hx of DM - BGM and ISS ACHS started #FEN -NS @ 83 -monitor - Na controlled diet started #DVT - Lovenox 40mg Visit type - Emergency Visit Emergency Visit: Yes ED Registration Date: 07/31/19 Care time: The patient presented to the Emergency Department on the above date and was hospitalized for further evaluation of their emergent condition. - New Patient This patient is new to me today: Yes Date on this admission: 08/02/19 - Critical Care Critical Care patient: No ATTENDING PHYSICIAN STATEMENT I saw and evaluated the patient. I reviewed the resident's note and discussed the case with the resident. I agree with the resident's findings and plan as documented. SUBJECTIVE: OBJECTIVE: ASSESSMENT AND PLAN:
--- NOTE | 2019-08-01 17:36 | CONSULT ---
Consult Consult Specialty:: Nephrology Reason for Consultation:: ANA - History of Present Illness Chief Complaint: syncope History of Present Illness: Pt is an 83 year old female with pmhx of htn, dm, cva with left side weakness who presents to the ER after an syncopal episode. She felt diaphoretic and dizzy while standing in the kitchen. She woke up after the fall and walked to her bathroom. I was called to evaluate her for ANA. 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 She denies history of CKD. She denies nsaid use. She is awake and alert. She denies hematuria or dysuria. 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 Cardio/Vascular: Yes: HTN - Alcohol/Substance Use Hx Alcohol Use: No - Smoking History Smoking history: Never smoked Home Medications - Allergies Allergies/Adverse Reactions: Allergies Allergy/AdvReac Type Severity Reaction Status Date / Time No Known Allergies Allergy Verified 07/31/19 17:33 - Home Medications Home Medications: Ambulatory Orders Acetaminophen [Mapap] 500 mg PO Q6H PRN 07/31/19 Alendronate Sodium 70 mg PO DAILY 07/31/19 Aspirin [ASA -] 81 mg PO DAILY 07/31/19 Calcium Carbonate [Calcium] 500 mg PO DAILY 07/31/19 Cholecalciferol (Vitamin D3) [Vitamin D3] 2,000 unit PO DAILY 07/31/19 Metoprolol Tartrate 100 mg PO DAILY 07/31/19 Naproxen 250 mg PO BID 07/31/19 Nifedipine ER [Procardia Xl -] 90 mg PO DAILY 07/31/19 Sitagliptin Phos/Metformin HCl [Janumet Xr 100-1,000 mg Tablet] 1 tab PO DAILY 07/31/19 Telmisartan 20 mg PO DAILY 07/31/19 Family Medical History Family History: Denies Review of Systems - Review of Systems Constitutional: reports: Malaise Eyes: reports: No Symptoms HENT: reports: No Symptoms Neck: reports: No Symptoms Respiratory: reports: No Symptoms Gastrointestinal: reports: No Symptoms Genitourinary: reports: No Symptoms Musculoskeletal: reports: No Symptoms Integumentary: reports: No Symptoms Neurological: reports: Syncope Endocrine: reports: No Symptoms Hematology/Lymphatic: reports: No Symptoms Psychiatric: reports: No Symptoms Physical Exam Vital Signs: Vital Signs Temperature 98.0 F 08/01/19 02:35 Pulse Rate 74 08/01/19 07:15 Respiratory Rate 16 08/01/19 07:15 Blood Pressure 139/71 08/01/19 07:15 O2 Sat by Pulse Oximetry (%) 100 08/01/19 07:15 Constitutional: Yes: Calm Eyes: Yes: Conjunctiva Clear HENT: Yes: Atraumatic Neck: Yes: Supple Cardiovascular: Yes: S1, S2 Respiratory: Yes: CTA Bilaterally Gastrointestinal: Yes: Soft Renal/: Yes: WNL Musculoskeletal: Yes: WNL Edema: No Neurological: Yes: Oriented Psychiatric: Yes: Oriented Labs: CBC, BMP 08/01/19 05:30 08/01/19 05:30 Imaging - Results Chest X-ray: Report Reviewed Problem List - Problems (1) ANA (acute kidney injury) Code(s): N17.9 - ACUTE KIDNEY FAILURE, UNSPECIFIED (2) Syncope and collapse Code(s): R55 - SYNCOPE AND COLLAPSE Assessment/Plan Current Medications Generic Name Dose Route Start Last Admin Trade Name Lucía PRN Reason Stop Dose Admin Aspirin 81 mg 08/01/19 10:00 08/01/19 11:00 Asa - PO 81 mg DAILY CAROLYN Administration Calcium Carbonate 500 mg 08/01/19 10:00 08/01/19 11:00 Os-Marcelino 500mg - PO 500 mg DAILY CAROLYN Administration Cholecalciferol 2,000 unit 08/01/19 10:00 08/01/19 11:00 Vitamin D3 - PO 2,000 unit DAILY CAROLYN Administration Enoxaparin Sodium 40 mg 08/01/19 10:00 08/01/19 11:00 Lovenox - SQ 40 mg DAILY CAROLYN Administration Sodium Chloride 1,000 mls @ 83 mls/hr 07/31/19 22:30 07/31/19 22:45 Normal Saline - IV 83 mls/hr ASDIR CAROLYN Administration Insulin Aspart 1 vial 07/31/19 22:00 08/01/19 15:03 Novolog Vial Sliding Scale - SQ 2 units ACHS CAROLYN Administration Protocol Nifedipine 90 mg 08/01/19 10:00 08/01/19 11:00 Procardia Xl - PO 90 mg DAILY CAROLYN Administration Valsartan 80 mg 08/01/19 10:00 08/01/19 11:00 Diovan - PO 80 mg DAILY CAROLYN Administration Laboratory Tests 07/31/19 08/01/19 08/01/19 17:50 05:30 05:30 Sodium 135 L 139 Potassium 5.2 H 3.6 BUN 26.8 H 21.0 H Creatinine 1.6 H 1.1 B-Natriuretic Peptide 1214.6 H Impression 1. ANA 2. syncope 3. htn 4. hx cva 5. hyperkalemia Plan - renal function is improved - potassium improved - d/c naproxen - repeat labs in am - send urine culture and blood culture - repeat ua
[2019-08-01 18:00] LABS: INR 1.17 (0.83-1.09); PROTHROMBIN TIME (PATIENT) 13.8 SEC (9.7-13.0)
--- NOTE | 2019-08-01 19:06 | PN ---
Teaching Attending Note Name of Resident: Milana Juarez 83 AA F h/o HTN, T2DM, CVA (with residual L sided weakness), R eye droop, presents to ED after an episode of near syncope. Patient endorses having felt dizzy, diaphoretic, weak and had a near syncopal episode until she was helped by grandson. Patient denies hitting her head, but did report receiving unfortunate news of her grandson who in [place] in which she doesn't want to talk about. In ED upon seeing patient she was sitting upright, comfortable, asymptomatic, eating lunch. VS otherwise stable. PE GA comfortable, AAox3, speaks in full sentences HEENT NC/AT, R eye droop (endorses chronic), neck supple Chest CTAB, no crackles or wheezing CVS S1, S2+, RRR, soft MARK+ Abd Soft, NT, ND, BS+, no HSM, no guarding Ext No LE edema, no calf tenderness Vital Signs - 24 hr 07/31/19 07/31/19 08/01/19 21:00 22:25 02:35 Temperature 98.0 F Pulse Rate [ 78 71 Left Radial] Respiratory 18 15 Rate Blood Pressure 123/56 L 124/87 [Right Arm] O2 Sat by Pulse 99 100 98 Oximetry (%) 08/01/19 07:15 Temperature Pulse Rate [ 74 Left Radial] Respiratory 16 Rate Blood Pressure 139/71 [Right Arm] O2 Sat by Pulse 100 Oximetry (%) Laboratory Results - last 24 hr 07/31/19 07/31/19 08/01/19 21:00 22:59 05:30 WBC Corrected WBC (auto) RBC Hgb Hct MCV MCH MCHC RDW Plt Count MPV Absolute Neuts (auto) Neutrophils % Lymphocytes % Monocytes % Eosinophils % Basophils % Nucleated RBC % Manual Slide Review Platelet Comment PT with INR INR Sodium 139 Potassium 3.6 Chloride 105 Carbon Dioxide 29 Anion Gap 6 L BUN 21.0 H Creatinine 1.1 Est GFR (CKD-EPI)AfAm 54.53 Est GFR (CKD-EPI)NonAf 47.05 POC Glucometer 204 Random Glucose 94 Hemoglobin A1c % Calcium 9.8 Phosphorus 3.1 Magnesium 1.7 L Total Bilirubin 0.4 AST 26 ALT 44 Alkaline Phosphatase 51 Troponin I B-Natriuretic Peptide Total Protein 7.6 Albumin 3.5 Free T4 0.99 Urine Color Yellow Urine Appearance Turbid Urine pH 6.5 Ur Specific [place] 1.014 Urine Protein 1+ H Urine Glucose (UA) Negative Urine Ketones Trace H Urine Blood Negative Urine Nitrite Negative Urine Bilirubin Negative Urine Urobilinogen 0.2 Ur Leukocyte Esterase 3+ H Urine WBC (Auto) 78 Urine RBC (Auto) 5 Urine Casts (Auto) 31 U Pathogenic Cast Auto Negative U Epithel Cells (Auto) 23.8 U Sm Round Cell (Auto) Wbc's Urine Crystals (Auto) Negative Urine Bacteria (Auto) 50 Urine Yeast (Auto) Negative 08/01/19 08/01/19 08/01/19 05:30 05:30 05:30 WBC Cancelled Corrected WBC (auto) Cancelled RBC Cancelled Hgb Cancelled Hct Cancelled MCV Cancelled MCH Cancelled MCHC Cancelled RDW Cancelled Plt Count Cancelled MPV Cancelled Absolute Neuts (auto) Neutrophils % Lymphocytes % Monocytes % Eosinophils % Basophils % Nucleated RBC % Manual Slide Review Cancelled Platelet Comment Cancelled PT with INR INR Sodium Potassium Chloride Carbon Dioxide Anion Gap BUN Creatinine Est GFR (CKD-EPI)AfAm Est GFR (CKD-EPI)NonAf POC Glucometer Random Glucose Hemoglobin A1c % 7.3 H Calcium Phosphorus Magnesium Total Bilirubin AST ALT Alkaline Phosphatase Troponin I B-Natriuretic Peptide 1214.6 H Total Protein Albumin Free T4 Urine Color Urine Appearance Urine pH Ur Specific [place] Urine Protein Urine Glucose (UA) Urine Ketones Urine Blood Urine Nitrite Urine Bilirubin Urine Urobilinogen Ur Leukocyte Esterase Urine WBC (Auto) Urine RBC (Auto) Urine Casts (Auto) U Pathogenic Cast Auto U Epithel Cells (Auto) U Sm Round Cell (Auto) Urine Crystals (Auto) Urine Bacteria (Auto) Urine Yeast (Auto) 08/01/19 08/01/19 08/01/19 05:30 13:17 17:05 WBC 8.3 Corrected WBC (auto) RBC 3.91 Hgb 10.6 L Hct 32.4 MCV 82.8 MCH 27.0 MCHC 32.6 RDW 14.6 Plt Count 340 MPV 8.4 Absolute Neuts (auto) 5.0 Neutrophils % 59.7 Lymphocytes % 31.9 D Monocytes % 6.7 Eosinophils % 1.0 Basophils % 0.7 Nucleated RBC % 0 Manual Slide Review Platelet Comment PT with INR INR Sodium Potassium Chloride Carbon Dioxide Anion Gap BUN Creatinine Est GFR (CKD-EPI)AfAm Est GFR (CKD-EPI)NonAf POC Glucometer 177 Random Glucose Hemoglobin A1c % Calcium Phosphorus Magnesium Total Bilirubin AST ALT Alkaline Phosphatase Troponin I < 0.02 B-Natriuretic Peptide Total Protein Albumin Free T4 Urine Color Urine Appearance Urine pH Ur Specific [place] Urine Protein Urine Glucose (UA) Urine Ketones Urine Blood Urine Nitrite Urine Bilirubin Urine Urobilinogen Ur Leukocyte Esterase Urine WBC (Auto) Urine RBC (Auto) Urine Casts (Auto) U Pathogenic Cast Auto U Epithel Cells (Auto) U Sm Round Cell (Auto) Urine Crystals (Auto) Urine Bacteria (Auto) Urine Yeast (Auto) 08/01/19 08/01/19 17:05 18:19 WBC Corrected WBC (auto) RBC Hgb Hct MCV MCH MCHC RDW Plt Count MPV Absolute Neuts (auto) Neutrophils % Lymphocytes % Monocytes % Eosinophils % Basophils % Nucleated RBC % Manual Slide Review Platelet Comment PT with INR 13.80 H INR 1.17 H Sodium Potassium Chloride Carbon Dioxide Anion Gap BUN Creatinine Est GFR (CKD-EPI)AfAm Est GFR (CKD-EPI)NonAf POC Glucometer 124 Random Glucose Hemoglobin A1c % Calcium Phosphorus Magnesium Total Bilirubin AST ALT Alkaline Phosphatase Troponin I B-Natriuretic Peptide Total Protein Albumin Free T4 Urine Color Urine Appearance Urine pH Ur Specific [place] Urine Protein Urine Glucose (UA) Urine Ketones Urine Blood Urine Nitrite Urine Bilirubin Urine Urobilinogen Ur Leukocyte Esterase Urine WBC (Auto) Urine RBC (Auto) Urine Casts (Auto) U Pathogenic Cast Auto U Epithel Cells (Auto) U Sm Round Cell (Auto) Urine Crystals (Auto) Urine Bacteria (Auto) Urine Yeast (Auto) Home Medications Medication Instructions Recorded Acetaminophen [Mapap] 500 mg PO Q6H PRN 07/31/19 Alendronate Sodium 70 mg PO DAILY 07/31/19 Aspirin [ASA -] 81 mg PO DAILY 07/31/19 Calcium Carbonate [Calcium] 500 mg PO DAILY 07/31/19 Cholecalciferol (Vitamin D3) 2,000 unit PO DAILY 07/31/19 [Vitamin D3] Metoprolol Tartrate 100 mg PO DAILY 07/31/19 Naproxen 250 mg PO BID 07/31/19 Nifedipine ER [Procardia Xl -] 90 mg PO DAILY 07/31/19 Sitagliptin Phos/Metformin HCl 1 tab PO DAILY 07/31/19 [Janumet Xr 100-1,000 mg Tablet] Telmisartan 20 mg PO DAILY 07/31/19 A/P: 83 AA F h/o HTN, T2DM, CVA (with residual L sided weakness), R eye droop, admitted for evaluation of near syncopal episode, ?vasovagal response v.s. cardiogenic cause. Near syncope obtain orthostatics, cardiac echo, carotids, continuous tele monitoring to r/o arrythmic causes SW referral for tragic loss of her son (provide support to patient) and evaluate living situation EKG showing junctional rhythm, avoid AV sallie blocking agents (Nifedipine OK) Neuro consult Cardiology consult who are recommending EP evaluation with Dr. Olea UTI some bacteria on urine sample, 3+ leuk esterase denies symptoms, CBC WNL, no fevers, no signs of sepsis will hold treatment for now in view of other triggers for near syncope being likely and lack of symptoms monitor VS Goiter on CT imaging no signs fo respiratory distress send thryoid panel, obtain thyroid US Endocrine consult ANA on CKD likely prerenal, now resolved w/ hydration avoid nephrotoxins, DC Naproxen (takes at home) Osteoporosis resume Os-Marcelino and Vit D resume bisphosphonate HTN restart CCB monitor VS T2DM ISS, basal insulin as needed DM diet CVA restart ASA send lipid panel, A1c, start statin as needed DVT ppx: AC Telemetry admission
[2019-08-01 21:08] VITALS: BMI 31.0
--- NOTE | 2019-08-01 21:31 | CON.CARD ---
Consult Consult Specialty:: Cardiac Electrophysiology Referred by:: Dr. Kearney Reason for Consultation:: Syncope. Bradycardia. Junctional Rhythm - History of Present Illness Chief Complaint: Syncope. Junctional Bradycardia History of Present Illness: Ms. Agarwal is a pleasant 83 year old female with a pmh of CVA (hemorrhagic reportedly) with residual left sided weakness, hypertension, dm who presented after a syncopal and near syncopal event at home. The patient was brought in by EMS and was found to be in a junctional rhythm on presentation in the ER. During her ER stay, her rhythm transitioned to sinus rhythm/sinus bradycardia. Of note, rhythm strips from initial EMS evaluation are not available for review. The patient states that she was in the kitchen yesterday and discussing the recent of her son with a family member. She states that she was very sulken and was crying. It was in that setting that she states she started to get dizzy and fell down. She denies LOC. The patient subsequently went to the bathroom and states that while she was sitting on the toilet urinating and defecating, she syncopized. EMS was then called. The patient denies any tongue biting or known shaking. She reports concomitant diaphoresis with both events. She denies any chest pain, dyspnea or palpitations. BNP elevated on admission with normal troponin. 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 Cardio/Vascular: Yes: HTN ...: No Musculoskeletal: Yes: Hemiparesis - Alcohol/Substance Use Hx Alcohol Use: No - Smoking History Smoking history: Never smoked Have you smoked in the past 12 months: No - Social History Usual Living Arrangement: Other (with family) Home Medications - Allergies Allergies/Adverse Reactions: Allergies Allergy/AdvReac Type Severity Reaction Status Date / Time No Known Allergies Allergy Verified 07/31/19 17:33 - Home Medications Home Medications: Ambulatory Orders Acetaminophen [Mapap] 500 mg PO Q6H PRN 07/31/19 Alendronate Sodium 70 mg PO DAILY 07/31/19 Aspirin [ASA -] 81 mg PO DAILY 07/31/19 Calcium Carbonate [Calcium] 500 mg PO DAILY 07/31/19 Cholecalciferol (Vitamin D3) [Vitamin D3] 2,000 unit PO DAILY 07/31/19 Metoprolol Tartrate 100 mg PO DAILY 02/02/20 Naproxen 250 mg PO BID 07/31/19 Nifedipine ER [Procardia Xl -] 90 mg PO DAILY 07/31/19 Sitagliptin Phos/Metformin HCl [Janumet Xr 100-1,000 mg Tablet] 1 tab PO DAILY 07/31/19 Telmisartan 20 mg PO DAILY 07/31/19 Family Medical History Family History: Denies (denies fam hx of scd) Review of Systems - Review of Systems Constitutional: denies: Chills, Fever Eyes: reports: Other (prior right eye vision impairment) HENT: denies: Epistaxis Cardiovascular: denies: Chest Pain, Edema, Palpitations, Shortness of Breath Respiratory: denies: Hemoptysis, SOB, SOB on Exertion Gastrointestinal: denies: Abdominal Pain, Melena, Nausea, Rectal Bleeding, Vomiting Musculoskeletal: reports: Decreased ROM (225) Neurological: reports: Syncope Endocrine: reports: Excessive Sweating Hematology/Lymphatic: denies: Excessive Bleeding Vital Signs: Vital Signs Temperature 99 F 08/01/19 20:45 Pulse Rate 88 08/01/19 20:45 Respiratory Rate 20 08/01/19 20:45 Blood Pressure 130/66 08/01/19 20:45 O2 Sat by Pulse Oximetry (%) 99 08/01/19 20:49 Constitutional: Yes: Well Nourished, No Distress, Calm HENT: Yes: Atraumatic Neck: Yes: Supple Respiratory: Yes: Regular, CTA Bilaterally Gastrointestinal: Yes: Normal Bowel Sounds, Soft Cardiovascular: Yes: Regular Rate and Rhythm JVD: No Murmur: No: Systolic Murmur Extremities: No: Cold, Cool, Cyanosis Edema: No Neurological: Yes: Alert, Oriented Psychiatric: Yes: Alert, Oriented - Other Data Labs, Other Data: CBC, BMP 08/01/19 05:30 08/01/19 05:30 INR, PTT INR 1.17 (0.83-1.09) H 08/01/19 17:05 Troponin, BNP 08/01/19 08/01/19 05:30 17:05 Troponin I < 0.02 B-Natriuretic Peptide 1214.6 H Troponin, BNP 08/01/19 08/01/19 05:30 17:05 Troponin I < 0.02 B-Natriuretic Peptide 1214.6 H Echo: Image Reviewed Imaging - Results Chest X-ray: Report Reviewed Problem List - Problems (1) Junctional escape rhythm Code(s): I49.49 - OTHER PREMATURE DEPOLARIZATION (2) Bradycardia Code(s): R00.1 - BRADYCARDIA, UNSPECIFIED (3) Near syncope Code(s): R55 - SYNCOPE AND COLLAPSE (4) IVCD (intraventricular conduction defect) Code(s): I45.4 - NONSPECIFIC INTRAVENTRICULAR BLOCK (5) Hypertension Code(s): I10 - ESSENTIAL (PRIMARY) HYPERTENSION (6) Syncope and collapse Code(s): R55 - SYNCOPE AND COLLAPSE Assessment/Plan 83 year old female with a pmh of CVA (hemorrhagic), hypertension, dm presenting with syncopal and near syncopal event. the patient's initial event occurred in the setting of discussing the recent of her son. she states she was crying at the time. subsequent syncopal event occurred while having a bowel movement and urinating. possibly vasovagal. her ekg initially demonstrated a junctional bradycardia and subsequently sinus rhythm. there appears to be a mild non-significant ivcd - this alone would not explain her event, particularly since she was asymptomatic on presentation to the ER. recordings from EMS are not available for review. the patient is on beta-blockers as an outpt. reported LVEF 47% per ER report although official report is not available at this time. there has been no evidence of advanced heart block on telemetry thus far. no indication for ppm at this time. elevated bnp with neg troponin. have discussed monitoring options with the patient. she would like to defer any implantable device at this time and is considering wearable event monitor instead if needed. appeared dehydrated on admission which also likely contributed to her symptoms. - f/u official echo - keep k 4-4.5, mg 2-2.5 - monitor on telemetry for 24 hours - serial cardiac enzymes - d/c av sallie blocking agents - outpt event monitoring. if neg, could consider ILR - care as per cardiology, primary services Thank you for allowing me to participate in the care of this patient. Please call with any questions, .
[2019-08-01] MEDS: SODIUM CHLORIDE 1,000 ML IV SCH (22:29)
[2019-08-02 04:23] LABS: EPI CELLS 3.4 /HPF (0-5/HPF); HYALINE CASTS 2 /lpf (0-8); URINE APPEARANCE CLOUDY; URINE BACTERIA 1076.3 /hpf (NEGATIVE); URINE BILIRUBIN NEGATIVE (NEGATIVE); URINE COLOR YELLOW; URINE GLUCOSE (UA) NEGATIVE (NEGATIVE); URINE KETONE NEGATIVE (NEGATIVE); URINE LEUK ESTERASE TRACE (NEGATIVE); URINE NITRITE NEGATIVE (NEGATIVE); URINE PROTEIN NEGATIVE (NEGATIVE); URINE RBC 0 /hpf (0-4); URINE UROBILINOGEN 0.2 mg/dL (0.2-1.0); URINE WBC 10 /hpf (0-5)
[2019-08-02] MEDS: INSULIN SLIDING SCALE (NOVOLOG) 1 VIAL SQ SCH ×2 (06:34→13:17)
[2019-08-02 06:40] LABS: BASO % 0.7 % (0-2.0); EOS % 2.1 % (0-4.5); HEMATOCRIT 32.8 % (32.4-45.2); HEMOGLOBIN 10.9 GM/dL (10.7-15.3); MCH 27.3 pg (25.7-33.7); MCHC 33.2 g/dl (32.0-36.0); MEAN CELL VOLUME 82.4 fl (80-96); MEAN PLT VOLUME 8.6 fl (7.5-11.1); MONO % 7.2 % (3.8-10.2); PLATELET COUNT 338 K/MM3 (134-434); RBC 3.98 M/mm3 (3.60-5.2); RDW 14.3 % (11.6-15.6); WHITE BLOOD COUNT 5.5 K/mm3 (4.0-10.0)
[2019-08-02 07:04] LABS: ALBUMIN 3.4 g/dl (3.4-5.0); BILIRUBIN,TOTAL 0.5 mg/dL (0.2-1); BLOOD UREA NITROGEN 12.7 mg/dL (7-18); CALCIUM 9.7 mg/dL (8.5-10.1); CREATININE 0.9 mg/dL (0.55-1.3); POTASSIUM 3.5 mmol/L (3.5-5.1); TOT PROT 7.5 g/dl (6.4-8.2)
[2019-08-02] MEDS: ENOXAPARIN NA (PORCINE) 40 MG/0.4 ML DISP.SYRIN SQ SCH (09:38)
[2019-08-02] MEDS: VALSARTAN 80 MG TABLET (UD) PO SCH (09:39)
[2019-08-02] MEDS: CHOLECALCIFEROL (VIT D3) 1,000 UNIT (25 MCG) TABLET PO SCH (09:39)
[2019-08-02] MEDS: NIFEdipine E.R. 90 MG TABLET PO SCH (09:39)
[2019-08-02] MEDS: CALCIUM (OYSTER SHELL) 500 MG TABLET (FP) PO SCH (09:39)
[2019-08-02] MEDS: ASPIRIN 81 MG CHEWABLE TABLETS PO SCH (09:39)
--- NOTE | 2019-08-02 09:44 | DS ---
Physical Exam: SUBJECTIVE: Patient seen and examined. No events overnight. Offers no complaints this morning. OBJECTIVE: Vital Signs Period Temp Pulse Resp BP Sys/[place] Pulse Ox Last 24 Hr 98 F-99.2 F 71-88 18-20 116-140/60-83 99-99 PHYSICAL EXAM GENERAL: a/o x 3, comfortable, in nad HEAD: Normal with no signs of trauma. EYES: PERRL, extraocular movements intact, sclera anicteric, conjunctiva clear. ENT: oropharynx clear without exudates, moist mucous membranes. NECK: supple. LUNGS: Breath sounds equal, clear to auscultation bilaterally, no wheezes, no crackles HEART: Regular rate and rhythm, S1, S2 without murmur, rub or gallop. ABDOMEN: Soft, nontender, nondistended, normoactive bowel sounds EXTREMITIES: 2+ pulses, warm, well-perfused, no edema. NEUROLOGICAL: Cranial nerves II through XII grossly intact. LABS Laboratory Results - last 24 hr 08/01/19 08/01/19 08/01/19 13:17 17:05 17:05 WBC RBC Hgb Hct MCV MCH MCHC RDW Plt Count MPV Absolute Neuts (auto) Neutrophils % Lymphocytes % Monocytes % Eosinophils % Basophils % Nucleated RBC % PT with INR 13.80 H INR 1.17 H Sodium Potassium Chloride Carbon Dioxide Anion Gap BUN Creatinine Est GFR (CKD-EPI)AfAm Est GFR (CKD-EPI)NonAf POC Glucometer 177 Random Glucose Calcium Total Bilirubin AST ALT Alkaline Phosphatase Troponin I < 0.02 Total Protein Albumin Urine Color Urine Appearance Urine pH Ur Specific [place] Urine Protein Urine Glucose (UA) Urine Ketones Urine Blood Urine Nitrite Urine Bilirubin Urine Urobilinogen Ur Leukocyte Esterase Urine WBC (Auto) Urine RBC (Auto) Urine Casts (Auto) U Epithel Cells (Auto) Urine Bacteria (Auto) 08/01/19 08/01/19 08/02/19 18:19 22:13 03:30 WBC RBC Hgb Hct MCV MCH MCHC RDW Plt Count MPV Absolute Neuts (auto) Neutrophils % Lymphocytes % Monocytes % Eosinophils % Basophils % Nucleated RBC % PT with INR INR Sodium Potassium Chloride Carbon Dioxide Anion Gap BUN Creatinine Est GFR (CKD-EPI)AfAm Est GFR (CKD-EPI)NonAf POC Glucometer 124 228 Random Glucose Calcium Total Bilirubin AST ALT Alkaline Phosphatase Troponin I Total Protein Albumin Urine Color Yellow Urine Appearance Cloudy Urine pH 5.0 D Ur Specific [place] 1.010 Urine Protein Negative Urine Glucose (UA) Negative Urine Ketones Negative Urine Blood Negative Urine Nitrite Negative Urine Bilirubin Negative Urine Urobilinogen 0.2 Ur Leukocyte Esterase Trace Urine WBC (Auto) 10 Urine RBC (Auto) 0 Urine Casts (Auto) 2 U Epithel Cells (Auto) 3.4 Urine Bacteria (Auto) 1076.3 08/02/19 08/02/19 08/02/19 05:55 06:00 06:25 WBC 5.5 RBC 3.98 Hgb 10.9 Hct 32.8 MCV 82.4 MCH 27.3 MCHC 33.2 RDW 14.3 Plt Count 338 MPV 8.6 Absolute Neuts (auto) 2.6 Neutrophils % 47.0 D Lymphocytes % 43.0 H D Monocytes % 7.2 Eosinophils % 2.1 D Basophils % 0.7 Nucleated RBC % 0 PT with INR INR Sodium 137 Potassium 3.5 Chloride 102 Carbon Dioxide 28 Anion Gap 6 L BUN 12.7 Creatinine 0.9 Est GFR (CKD-EPI)AfAm 69.50 Est GFR (CKD-EPI)NonAf 59.96 POC Glucometer 121 Random Glucose 124 H Calcium 9.7 Total Bilirubin 0.5 AST 20 ALT 36 Alkaline Phosphatase 52 Troponin I Total Protein 7.5 Albumin 3.4 Urine Color Urine Appearance Urine pH Ur Specific [place] Urine Protein Urine Glucose (UA) Urine Ketones Urine Blood Urine Nitrite Urine Bilirubin Urine Urobilinogen Ur Leukocyte Esterase Urine WBC (Auto) Urine RBC (Auto) Urine Casts (Auto) U Epithel Cells (Auto) Urine Bacteria (Auto) HOSPITAL COURSE: Date of Admission:07/31/19 83 year old female with PMH of HTN, DM, CVA (with residual L sided weakness). She presented to the ER with complaints of 1 episode of presyncope and 1 episode of syncope within a few minutes of each other earlier today. #Near Syncope -likely vasovagal. per cardio: -vagal features present including vol depleted labs likely on admit, bowel urgency following. however presented in junctional rhythm at stable HR, raising suspicion of higher degree of heart block during initial episode -echo unremarkable. -EKG 51BPM, bradycardia, syncope may have been 2/2 AV block -Reflex: Prodrome of diaphoresis and dizziness was positive, along with increased vasovagal tone during defecation in patient - CT Head: Calcified meningioma in L occipital lobe - CT C-spine: L lobe goiter, osteophyte impingement -EP consult: have discussed monitoring options with the patient. she would like to defer any implantable device at this time and is considering wearable event monitor instead if needed. care as per cardiology, primary services -telemonitoring #Goiter - Incidental finding of L lobe goiter on CT C spine - TSH normal - Thyroid US outpatient #Osteophyte impingement - Incidental finding of CT C-spine - Pt denies any numbness, tingling #ANA -resolved #Hx of HTN -stable -avoid AVN blockers (conduction system dz) -stopped metoprolol #Hx of DM - BGM and ISS ACHS started dispo: Cleared to return to her adult day program. Date of Discharge: 08/02/19 Minutes to complete discharge: 35 Discharge Summary Problems reviewed: Yes Reason For Visit: SYNCOPE AND COLLAPSE Current Active Problems ANA (acute kidney injury) (Acute) Bradycardia (Acute) Hypertension (Acute) IVCD (intraventricular conduction defect) (Acute) Junctional escape rhythm (Acute) Near syncope (Acute) Syncope and collapse (Acute) Condition: Guarded - Instructions Diet, Activity, Other Instructions: You were here because you fell and almost lost consciousness. You will need to see a heart doctor (cardiology) for further evaluation. Make an appointment within 1 week after discharge. Your Metoprolol was stopped by cardiology. Follow up with your primary care doctor in 1 week. Referrals: Naga Kearney MD [Staff Physician] - 1 Week ON STAFF,NOT [Primary Care Provider] - 1 Week (Dr. Rodriguez) Disposition: HOME - Home Medications Comprehensive Discharge Medication List: Ambulatory Orders Alendronate Sodium 70 mg PO DAILY 07/31/19 Aspirin [ASA -] 81 mg PO DAILY 07/31/19 Calcium Carbonate [Calcium] 500 mg PO DAILY 07/31/19 Cholecalciferol (Vitamin D3) [Vitamin D3] 2,000 unit PO DAILY 07/31/19 Nifedipine ER [Procardia XL -] 90 mg PO DAILY 07/31/19 Sitagliptin Phos/Metformin HCl [Janumet Xr 100-1,000 mg Tablet] 1 tab PO DAILY 07/31/19 Telmisartan 20 mg PO DAILY 07/31/19 This patient is new to me today: Yes Date on this admission: 08/02/19 Emergency Visit: Yes ED Registration Date: 07/31/19 Care time: The patient presented to the Emergency Department on the above date and was hospitalized for further evaluation of their emergent condition. Critical Care patient: No - Discharge Referral Referred to [facility] No ATTENDING PHYSICIAN STATEMENT I saw and evaluated the patient. I reviewed the resident's note and discussed the case with the resident. I agree with the resident's findings and plan as documented. SUBJECTIVE: OBJECTIVE: ASSESSMENT AND PLAN:
--- NOTE | 2019-08-02 11:11 | CONSULT ---
Admitting History and Physical - Primary Care Physician PCP: Lakeisha Lopez - Admission History of Present Illness: 83 AA F h/o HTN, T2DM, CVA (with residual L sided weakness), R eye droop, admitted for evaluation of near syncopal episode, ?vasovagal response v.s. cardiogenic cause. 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 Cardiovascular: Yes: HTN ...: No Musculoskeletal: Yes: Hemiparesis - Smoking History Smoking history: Never smoked Have you smoked in the past 12 months: No - Alcohol/Substance Use Hx Alcohol Use: No History - Admission Reason For Visit: SYNCOPE AND COLLAPSE - Diagnostics X-ray: Report Reviewed CT Scan: Report Reviewed - General Mental Status: Alert and Oriented, Awake and Alert, Able to Follow Commands Attention: Intact Ability to Follow Directions: Excellent Head/Neck Control: WFL - Hearing Hearing: Normal Hearing Aide: No With Patient: No Speech Evaluation - Communication Primary Language: BULGARIAN Communication: Yes: Within Normal Limits Oral Expression Ability: Yes: No Impairment - Speech Production Able to Make Needs Known: Yes: WNL Intelligibility: Yes: WNL - Speech Characteristics Voice Loudness: Normal Voice Pitch: Yes: Normal Voice Phonatory-based Quality: Yes: Normal Speech Pattern: Normal Speech Clarity: < 100% Nasal Resonance: Normal Articulation: Yes: Precise Rate of Speech: Intact - Language/Auditory Comprehension Follows: Yes: 2 Stage Simple Commands Observation: Able to respond to yes/no queries: Yes, Yes/No Confusion: No, Comprehends Conversational Speech: Yes - Language/Verbal Expression Able to Respond to Simple Queries: Yes: WNL Able to Communicate Wants and Needs: Yes: WNL Functional Communication Status: Yes: WNL - 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: WNL Short Term Memory: Yes: WNL - Swallow Evaluation/Bedside Assessment Current Nutritional Intake: Regular, Thin Liquids Oral Secretions: Yes: WFL Dentition: Yes: Adequate Facial Symmetry at Rest: Symmetrical, Facial Droop Left (slight at rest) Facial Symmetry on Retraction: Symmetrical Facial Movement: Controlled Against Resistance Opening: Normal Against Resistance Closing: Normal Pucker Lips: Normal Smile: Normal Lingual Movement: Normal, Symmetric Lingual Speed of Movement: Normal Lingual Movement Strgth Against Opposition: Normal Lingual Movement Characteristics: Normal Velopharyngeal Movement: Normal Laryngeal Elevation: WFL Laryngeal Movement: Able to Palpate Rate of Intake: WFL Bolus Size: WFL Labial Seal: WFL Chewing: WFL Oral Prep Time: WFL A-P Transit: WFL Pocketing: None Timing of Swallow: WFL Coughing/Throat Clear: No Change in Voice: No Recommendations - Speech Evaluation, Impression/Plan Impression: Speech/language/cognition/swallowing intact. - Dysphagia Impressions/Plan Swallowing Skills: WFL Dysphagia Impressions: No Impairment *Silent aspiration: cannot be R/O at bedside - Recommendations Diet Consistency: Regular Medication Administration: Whole with water Liquids: Thin Liquids
--- NOTE | 2019-08-02 11:44 | PN ---
Progress Note (short form) - Note Progress Note: s: no chest pain, palps, dizziness, dyspnea Current Medications Aspirin (Asa -) 81 mg PO DAILY [facility] Last Admin: 08/02/19 09:39 Dose: 81 mg Calcium Carbonate (Os-Marcelino 500mg -) 500 mg PO DAILY [facility] Last Admin: 08/02/19 09:39 Dose: 500 mg Cholecalciferol (Vitamin D3 -) 2,000 unit PO DAILY [facility] Last Admin: 08/02/19 09:39 Dose: 2,000 unit Enoxaparin Sodium (Lovenox -) 40 mg SQ DAILY [facility] Last Admin: 08/02/19 09:38 Dose: 40 mg Sodium Chloride (Normal Saline -) 1,000 mls @ 83 mls/hr IV ASDIR [facility] Last Admin: 08/01/19 22:29 Dose: 83 mls/hr Insulin Aspart (Novolog Vial Sliding Scale -) 1 vial SQ ACHS [facility]; Protocol Last Admin: 08/02/19 06:34 Dose: Not Given Nifedipine (Procardia Xl -) 90 mg PO DAILY [facility] Last Admin: 08/02/19 09:39 Dose: 90 mg Valsartan (Diovan -) 80 mg PO DAILY [facility] Last Admin: 08/02/19 09:39 Dose: 80 mg Vital Signs Period Temp Pulse Resp BP Sys/[place] Pulse Ox Last 24 Hr 98 F-99.3 F 71-106 18-20 116-155/60-83 97-99 Constitutional: Yes: Well Nourished, No Distress, Other (dried urine odor) Eyes: No: Sclera Icterus HENT: No: Nasal Congestion Neck: No: Decreased ROM Respiratory: Yes: CTA Bilaterally. No: Accessory Muscle Use, Rales, Wheezes Gastrointestinal: Yes: Normal Bowel Sounds. No: Distention, Hepatomegaly, Palpable Mass, Tenderness Cardiovascular: Yes: Regular Rate and Rhythm JVD: No Carotid Bruit: No PMI: Non-Displaced Heart Sounds: Yes: S1, S2. No: Gallop Murmur: No: Systolic Murmur, Diastolic Murmur Musculoskeletal: Yes: Other (No kyphosis) Extremities: No: Cool, Cyanosis Edema: No Peripheral Pulses: 2+ Left Carotid, 2+ Right Carotid, 2+ Left Doralis Pedis, 2+ Right Dorsalis Pedis Integumentary: No: Jaundice Neurological: Yes: Alert, Oriented (x3) Psychiatric: No: Agitated Assessment/Plan ECG #1: junctional rhythm (51 bpm) with marked sinus jose de jesus/sinus arrest in background; nonspecific terminal QRS-ST abnormality; nonsp ST-T septal leads ( no prior #2: NSR, normal CXR: cardomeg; clear lungs/pleura CT head: no acute pathology echo 07/2019 nl LV function, mild LVH, RV grossly nl, no significant valvular pathology tele: sinus syncope: -vagal features present including vol depleted labs likely on admit, bowel urgency following. however presented in junctional rhythm at stable HR, raising suspicion of higher degree of heart block during initial episode -no ischemic ecg findings, trop neg x 2 -echo unremarkable -TSH normal -her presenting rhythm was stable and not a culprit for syncope--? if had sinus disease at home without reliable escape rhythm when syncopized -no events on tele -EP evaluated - declines ILR, plan for outpatient event monitor and consider ILR if negative - no further inpatient cardiac workup HTN: -bp stable -avoid AVN blockers (conduction system dz) DM: -per hospitalist ANA: -resolved overnight with hydration -trend labs stable for dc from cardiac perspective
--- NOTE | 2019-08-02 15:05 | PN ---
Progress Note, Physician History of Present Illness: Pt seen and examined at bedside. She is awake and alert. She denies shortness of breath. - Current Medication List Current Medications: Active Medications Aspirin (Asa -) 81 mg PO DAILY [facility] Last Admin: 08/02/19 09:39 Dose: 81 mg Calcium Carbonate (Os-Marcelino 500mg -) 500 mg PO DAILY [facility] Last Admin: 08/02/19 09:39 Dose: 500 mg Cholecalciferol (Vitamin D3 -) 2,000 unit PO DAILY [facility] Last Admin: 08/02/19 09:39 Dose: 2,000 unit Enoxaparin Sodium (Lovenox -) 40 mg SQ DAILY [facility] Last Admin: 08/02/19 09:38 Dose: 40 mg Sodium Chloride (Normal Saline -) 1,000 mls @ 83 mls/hr IV ASDIR [facility] Last Admin: 08/01/19 22:29 Dose: 83 mls/hr Insulin Aspart (Novolog Vial Sliding Scale -) 1 vial SQ ACHS [facility]; Protocol Last Admin: 08/02/19 13:17 Dose: 2 units Nifedipine (Procardia Xl -) 90 mg PO DAILY [facility] Last Admin: 08/02/19 09:39 Dose: 90 mg Valsartan (Diovan -) 80 mg PO DAILY [facility] Last Admin: 08/02/19 09:39 Dose: 80 mg - Objective Vital Signs: Vital Signs Temperature 99.3 F 08/02/19 10:00 Pulse Rate 96 H 08/02/19 10:38 Respiratory Rate 20 08/02/19 10:00 Blood Pressure 155/81 08/02/19 10:38 O2 Sat by Pulse Oximetry (%) 97 08/02/19 09:00 Constitutional: Yes: Calm Eyes: Yes: Conjunctiva Clear HENT: Yes: Atraumatic Neck: Yes: Supple Cardiovascular: Yes: S1, S2 Respiratory: Yes: CTA Bilaterally Gastrointestinal: Yes: Normal Bowel Sounds, Soft Genitourinary: Yes: WNL Musculoskeletal: Yes: WNL Edema: No Neurological: Yes: Oriented Labs: CBC, BMP 08/02/19 06:00 08/02/19 05:55 INR, PTT INR 1.17 (0.83-1.09) H 08/01/19 17:05 Problem List - Problems (1) ANA (acute kidney injury) Code(s): N17.9 - ACUTE KIDNEY FAILURE, UNSPECIFIED (2) Syncope and collapse Code(s): R55 - SYNCOPE AND COLLAPSE Assessment/Plan Current Medications Generic Name Dose Route Start Last Admin Trade Name Lucía PRN Reason Stop Dose Admin Aspirin 81 mg 08/01/19 10:00 08/02/19 09:39 Asa - PO 81 mg DAILY [facility] Administration Calcium Carbonate 500 mg 08/01/19 10:00 08/02/19 09:39 Os-Marcelino 500mg - PO 500 mg DAILY [facility] Administration Cholecalciferol 2,000 unit 08/01/19 10:00 08/02/19 09:39 Vitamin D3 - PO 2,000 unit DAILY [facility] Administration Enoxaparin Sodium 40 mg 08/01/19 10:00 08/02/19 09:38 Lovenox - SQ 40 mg DAILY [facility] Administration Sodium Chloride 1,000 mls @ 83 mls/hr 07/31/19 22:30 08/01/19 22:29 Normal Saline - IV 83 mls/hr ASDIR [facility] Administration Insulin Aspart 1 vial 07/31/19 22:00 08/02/19 13:17 Novolog Vial Sliding Scale - SQ 2 units ACHS [facility] Administration Protocol Nifedipine 90 mg 08/01/19 10:00 08/02/19 09:39 Procardia Xl - PO 90 mg DAILY [facility] Administration Valsartan 80 mg 08/01/19 10:00 08/02/19 09:39 Diovan - PO 80 mg DAILY [facility] Administration Impression 1. ANA 2. syncope 3. htn 4. hx cva 5. hyperkalemia Plan - d/c fluids - renal function stable - monitor bp - follow urine cultures - repeat ua improved - pt denies urinary symptoms - avoid nsaids
[2019-08-02 16:00] VITALS: BP 133/51; PULSE 91; TEMP 98.1
--- NOTE | 2019-08-02 17:09 | PN ---
Teaching Attending Note Name of Resident: Milana Juarez ATTENDING PHYSICIAN STATEMENT I saw and evaluated the patient. I reviewed the resident's note and discussed the case with the resident. I agree with the resident's findings and plan as documented. SUBJECTIVE: Seen and examined at bedside, no acute events overnight. ready to go home. OBJECTIVE: PE: NAD Lungs CTA bl, no wrr, unlabored CVS +s1s2, RRR Abd Soft, NT, ND Ext no LE edema 08/01/19 08/01/19 08/01/19 19:43 20:45 20:49 Temperature 98.7 F 99 F Pulse Rate 88 Pulse Rate [ 85 Left Radial] Pulse Rate [ Right side Sitting] Pulse Rate [ Right side Standing] Pulse Rate [ Right side Supine] Respiratory 18 20 Rate Blood Pressure 130/66 Blood Pressure 116/60 [Right Arm] Blood Pressure [Right side Sitting] Blood Pressure [Right side Standing] Blood Pressure [Right side Supine] O2 Sat by Pulse 99 99 Oximetry (%) 08/01/19 08/02/19 08/02/19 23:00 02:12 05:45 Temperature 98 F 99.2 F Pulse Rate 71 72 80 Pulse Rate [ Left Radial] Pulse Rate [ Right side Sitting] Pulse Rate [ Right side Standing] Pulse Rate [ Right side Supine] Respiratory 18 20 20 Rate Blood Pressure 134/69 140/83 Blood Pressure [Right Arm] Blood Pressure [Right side Sitting] Blood Pressure [Right side Standing] Blood Pressure [Right side Supine] O2 Sat by Pulse Oximetry (%) 08/02/19 08/02/19 08/02/19 09:00 10:00 10:38 Temperature 99.3 F Pulse Rate 92 H Pulse Rate [ Left Radial] Pulse Rate [ 96 H Right side Sitting] Pulse Rate [ 106 H Right side Standing] Pulse Rate [ 92 H Right side Supine] Respiratory 20 20 Rate Blood Pressure 145/76 Blood Pressure [Right Arm] Blood Pressure 155/81 [Right side Sitting] Blood Pressure 140/83 [Right side Standing] Blood Pressure 145/76 [Right side Supine] O2 Sat by Pulse 97 Oximetry (%) 08/02/19 14:00 Temperature 98.1 F Pulse Rate 91 H Pulse Rate [ Left Radial] Pulse Rate [ Right side Sitting] Pulse Rate [ Right side Standing] Pulse Rate [ Right side Supine] Respiratory 20 Rate Blood Pressure 133/51 L Blood Pressure [Right Arm] Blood Pressure [Right side Sitting] Blood Pressure [Right side Standing] Blood Pressure [Right side Supine] O2 Sat by Pulse Oximetry (%) Current Medications Aspirin (Asa -) 81 mg PO DAILY [facility] Last Admin: 08/02/19 09:39 Dose: 81 mg Calcium Carbonate (Os-Marcelino 500mg -) 500 mg PO DAILY [facility] Last Admin: 08/02/19 09:39 Dose: 500 mg Cholecalciferol (Vitamin D3 -) 2,000 unit PO DAILY [facility] Last Admin: 08/02/19 09:39 Dose: 2,000 unit Enoxaparin Sodium (Lovenox -) 40 mg SQ DAILY [facility] Last Admin: 08/02/19 09:38 Dose: 40 mg Insulin Aspart (Novolog Vial Sliding Scale -) [address] [facility]; Protocol Last Admin: 08/02/19 13:17 Dose: 2 units Nifedipine (Procardia Xl -) 90 mg PO DAILY [facility] Last Admin: 08/02/19 09:39 Dose: 90 mg Valsartan (Diovan -) 80 mg PO DAILY [facility] Last Admin: 08/02/19 09:39 Dose: 80 mg Laboratory Results - last 24 hr 08/01/19 08/01/19 08/01/19 05:30 17:05 17:05 WBC RBC Hgb Hct MCV MCH MCHC RDW Plt Count MPV Absolute Neuts (auto) Neutrophils % Lymphocytes % Monocytes % Eosinophils % Basophils % Nucleated RBC % PT with INR 13.80 H INR 1.17 H Sodium Potassium Chloride Carbon Dioxide Anion Gap BUN Creatinine Est GFR (CKD-EPI)AfAm Est GFR (CKD-EPI)NonAf POC Glucometer Random Glucose Calcium Total Bilirubin AST ALT Alkaline Phosphatase Troponin I < 0.02 Total Protein Albumin PTH Intact 46 Urine Color Urine Appearance Urine pH Ur Specific [place] Urine Protein Urine Glucose (UA) Urine Ketones Urine Blood Urine Nitrite Urine Bilirubin Urine Urobilinogen Ur Leukocyte Esterase Urine WBC (Auto) Urine RBC (Auto) Urine Casts (Auto) U Epithel Cells (Auto) Urine Bacteria (Auto) 08/01/19 08/01/19 08/02/19 18:19 22:13 03:30 WBC RBC Hgb Hct MCV MCH MCHC RDW Plt Count MPV Absolute Neuts (auto) Neutrophils % Lymphocytes % Monocytes % Eosinophils % Basophils % Nucleated RBC % PT with INR INR Sodium Potassium Chloride Carbon Dioxide Anion Gap BUN Creatinine Est GFR (CKD-EPI)AfAm Est GFR (CKD-EPI)NonAf POC Glucometer 124 228 Random Glucose Calcium Total Bilirubin AST ALT Alkaline Phosphatase Troponin I Total Protein Albumin PTH Intact Urine Color Yellow Urine Appearance Cloudy Urine pH 5.0 D Ur Specific [place] 1.010 Urine Protein Negative Urine Glucose (UA) Negative Urine Ketones Negative Urine Blood Negative Urine Nitrite Negative Urine Bilirubin Negative Urine Urobilinogen 0.2 Ur Leukocyte Esterase Trace Urine WBC (Auto) 10 Urine RBC (Auto) 0 Urine Casts (Auto) 2 U Epithel Cells (Auto) 3.4 Urine Bacteria (Auto) 1076.3 08/02/19 08/02/19 08/02/19 05:55 06:00 06:25 WBC 5.5 RBC 3.98 Hgb 10.9 Hct 32.8 MCV 82.4 MCH 27.3 MCHC 33.2 RDW 14.3 Plt Count 338 MPV 8.6 Absolute Neuts (auto) 2.6 Neutrophils % 47.0 D Lymphocytes % 43.0 H D Monocytes % 7.2 Eosinophils % 2.1 D Basophils % 0.7 Nucleated RBC % 0 PT with INR INR Sodium 137 Potassium 3.5 Chloride 102 Carbon Dioxide 28 Anion Gap 6 L BUN 12.7 Creatinine 0.9 Est GFR (CKD-EPI)AfAm 69.50 Est GFR (CKD-EPI)NonAf 59.96 POC Glucometer 121 Random Glucose 124 H Calcium 9.7 Total Bilirubin 0.5 AST 20 ALT 36 Alkaline Phosphatase 52 Troponin I Total Protein 7.5 Albumin 3.4 PTH Intact Urine Color Urine Appearance Urine pH Ur Specific [place] Urine Protein Urine Glucose (UA) Urine Ketones Urine Blood Urine Nitrite Urine Bilirubin Urine Urobilinogen Ur Leukocyte Esterase Urine WBC (Auto) Urine RBC (Auto) Urine Casts (Auto) U Epithel Cells (Auto) Urine Bacteria (Auto) 08/02/19 11:09 WBC RBC Hgb Hct MCV MCH MCHC RDW Plt Count MPV Absolute Neuts (auto) Neutrophils % Lymphocytes % Monocytes % Eosinophils % Basophils % Nucleated RBC % PT with INR INR Sodium Potassium Chloride Carbon Dioxide Anion Gap BUN Creatinine Est GFR (CKD-EPI)AfAm Est GFR (CKD-EPI)NonAf POC Glucometer 195 Random Glucose Calcium Total Bilirubin AST ALT Alkaline Phosphatase Troponin I Total Protein Albumin PTH Intact Urine Color Urine Appearance Urine pH Ur Specific [place] Urine Protein Urine Glucose (UA) Urine Ketones Urine Blood Urine Nitrite Urine Bilirubin Urine Urobilinogen Ur Leukocyte Esterase Urine WBC (Auto) Urine RBC (Auto) Urine Casts (Auto) U Epithel Cells (Auto) Urine Bacteria (Auto) Assessment: 83 AA F h/o HTN, T2DM, CVA (with residual L sided weakness), R eye droop, admitted for evaluation of near syncopal episode. Near syncope UTI Goiter incidental finding AOCKD asymptomatic bacteruria Osteoporosis HTN DM2 CVA hx Plan: junctional rhythm/sinus jose de jesus-EP eval outpatient, patient does not want to pursue further workup here negative orthostatics avoid AVN blockers thyroid us outpatient echo unremarkable stable for dc home with close followup
== END 2019-08-02 17:34 | disposition home or self-care (01) | DRG 204 ==
LOC: JER 17:08 → JERBED 19:38 → OBSVTOIN 20:24 → J4W 08-01 20:41
PROVIDERS: ADMIT Internal Medicine; ATTEND Internal Medicine
DX: R55 Syncope and collapse (principal); D32.9 Benign neoplasm of meninges, unspecified; E11.9 Type 2 diabetes mellitus without complications; N18.9 Chronic kidney disease, unspecified; E66.9 Obesity, unspecified; E04.9 Nontoxic goiter, unspecified; N39.0 Urinary tract infection, site not specified; I49.49 Other premature depolarization; N17.9 Acute kidney failure, unspecified; E87.5 Hyperkalemia; G81.94 Hemiplegia, unspecified affecting left nondominant side; I12.9 Hypertensive chronic kidney disease with stage 1 through stage 4 chronic kidney disease, or unspecified chronic kidney disease; Z68.31 Body mass index [BMI] 31.0-31.9, adult
CPT/HCPCS: 36415; 70450-TC; 71045-TC-FY; 72125-TC; 80053; 81003; 82550; 82962; 83036; 83735; 83880; 83970; 84100; 84439; 84443; 84484; 85025; 85610; 87086; 87186; 93005; 93010; 93306-TC; 93880-TC; 97116-GP; 97161-GP; 99285-25; G0378; J7030

== ENCOUNTER 2021-03-31 23:06 | Inpatient (IN) | payer OTHER ==
[2021-03-31] MEDS ORDERED: LACTATED RINGERS SOLUTION 1000 ML INFUS.BAG IV ONE (23:45)
[2021-04-01 01:01] LABS: HEMATOCRIT 26.7 % (32.4-45.2); HEMOGLOBIN 8.6 GM/dL (10.7-15.3); MCH 24.6 pg (25.7-33.7); MCHC 32.2 g/dl (32.0-36.0); MEAN CELL VOLUME 76.4 fl (80-96); MEAN PLT VOLUME 8.1 fl (7.5-11.1); PLATELET COUNT 320 10^3/uL (134-434); RBC 3.49 M/mm3 (3.60-5.2); RDW 15.4 % (11.6-15.6)
[2021-04-01 01:08] LABS: INR 1.46 (0.83-1.09)
[2021-04-01 01:11] LABS: ACTIVATED PTT 37.3 SECONDS (25.2-36.5)
[2021-04-01 01:17] LABS: CHLORIDE 93 mmol/L (98-107); SODIUM 130 mmol/L (136-145)
[2021-04-01 01:19] LABS: CALCIUM 8.8 mg/dL (8.5-10.1)
[2021-04-01 01:20] LABS: ALBUMIN 2.3 g/dl (3.4-5.0); ANION GAP 10 MMOL/L (8-16); BLOOD UREA NITROGEN 23.4 mg/dL (7-18); CO2 27 mmol/L (21-32); GLUCOSE,RANDOM 296 mg/dL (74-106)
[2021-04-01 01:23] LABS: CREATININE 1.5 mg/dL (0.55-1.3); SGOT/AST 21 U/L (15-37); SGPT/ALT 19 U/L (13-61)
[2021-04-01 01:24] LABS: BILIRUBIN,TOTAL 0.4 mg/dL (0.2-1); TOT PROT 8.7 g/dl (6.4-8.2)
[2021-04-01 01:26] LABS: ALK PHOS 59 U/L (45-117)
[2021-04-01] MEDS ORDERED: CEFTRIAXONE 1,000 MG in DEXTROSE 5%-WATER - 50 ML IVPB ONE (01:29)
[2021-04-01] MEDS ORDERED: ACETAMINOPHEN 1000 MG/100 ML VIAL IVPB ONE (01:30)
[2021-04-01] MEDS ORDERED: SODIUM CHLORIDE 0.9% 1000 ML INFUS.BAG IV ONE (01:30)
[2021-04-01] MEDS ORDERED: ACETAMINOPHEN INJECTION 100 ML IVPB ONE ×2 (02:07→10:24)
[2021-04-01] MEDS ORDERED: CEFTRIAXONE 1 GM/50 ML BAG ONE (02:07)
[2021-04-01 02:25] LABS: ANISOCYTOSIS 2+; MACROCYTOSIS 0; PLATELET ESTIMATE NORMAL
[2021-04-01 02:49] LABS: EPI CELLS 27 /uL (0-25.1); HYALINE CASTS 3 /uL (0-3.1); URINE APPEARANCE TURBID; URINE BACTERIA >9,000 /uL (0-1359); URINE BILIRUBIN NEGATIVE (NEGATIVE); URINE COLOR YELLOW; URINE GLUCOSE (UA) 3+ (NEGATIVE); URINE KETONE TRACE (NEGATIVE); URINE LEUK ESTERASE 2+ (NEGATIVE); URINE NITRITE NEGATIVE (NEGATIVE); URINE PROTEIN 2+ (NEGATIVE); URINE RBC 123 /uL (0-23.9); URINE UROBILINOGEN 0.2 mg/dL (0.2-1.0); URINE WBC 7852 /uL (0-25.8)
[2021-04-01] MEDS ORDERED: ACETAMINOPHEN 325 MG TABLET (FP) PO PRN (05:22)
[2021-04-01] MEDS ORDERED: Insulin (LOG) Aspart 100 UNITS/ML VIAL SQ ONE (05:31)
[2021-04-01] MEDS: SODIUM CHLORIDE 1,000 ML IV SCH (05:53)
[2021-04-01] MEDS: HEPARIN NA (PORCINE) 5,000 UNITS/ML 1ML VIAL SQ SCH ×3 (07:40→21:48)
[2021-04-01] MEDS ORDERED: HEPARIN NA (PORCINE) 5,000 UNITS/ML 1ML VIAL ONE ×2 (08:33→16:47)
[2021-04-01] MEDS: INSULIN SLIDING SCALE (NOVOLOG) 1 VIAL SQ SCH ×4 (08:50→22:18)
[2021-04-01 12:17] LABS: MAGNESIUM 2.1 mg/dL (1.8-2.4)
[2021-04-01 12:20] LABS: IRON SERUM 10 ug/dL (50-175); PHOSPHOROUS 2.5 mg/dL (2.5-4.9); TOTAL IRON BINDING CAPACITY 195 ug/dL (250-450)
[2021-04-01 12:24] LABS: HEMATOCRIT 23.9 % (32.4-45.2); HEMOGLOBIN 7.8 GM/dL (10.7-15.3); MCHC 32.6 g/dl (32.0-36.0); MEAN CELL VOLUME 76.6 fl (80-96); PLATELET COUNT 291 10^3/uL (134-434); RBC 3.12 M/mm3 (3.60-5.2); RDW 15.3 % (11.6-15.6); WHITE BLOOD COUNT 19.6 K/mm3 (4.0-10.0)
[2021-04-01 12:49] LABS: BLOOD UREA NITROGEN 20.4 mg/dL (7-18); CALCIUM 8.5 mg/dL (8.5-10.1)
[2021-04-01 12:53] LABS: CREATININE 1.2 mg/dL (0.55-1.3); PHOSPHOROUS 2.7 mg/dL (2.5-4.9)
[2021-04-01] MEDS ORDERED: CASIRIVIMAB/IMDEVIMAB 10 ML in SODIUM CHLORIDE 100 ML IVPB ONE (16:46)
[2021-04-01] MEDS ORDERED: ACETAMINOPHEN 325 MG TABLET (FP) ONE (17:04)
[2021-04-01 18:48] VITALS: BMI 27.5
[2021-04-01] MEDS ORDERED: DEXTROSE 5%-WATER 100 ML IVPB ONE ×2 (19:28→21:51)
[2021-04-01] MEDS: CEFTRIAXONE 2 GM in DEXTROSE 5%-WATER 2 GM/100 ML BAG IVPB SCH (19:32)
[2021-04-01] MEDS ORDERED: CEFTRIAXONE 2 GM in DEXTROSE 5%-WATER 2 GM/100 ML BAG IVPB ONE (20:39)
[2021-04-02] MEDS: HEPARIN NA (PORCINE) 5,000 UNITS/ML 1ML VIAL SQ SCH ×3 (06:23→21:31)
[2021-04-02] MEDS: SODIUM CHLORIDE 1,000 ML IV SCH (06:24)
[2021-04-02] MEDS: INSULIN SLIDING SCALE (NOVOLOG) 1 VIAL SQ SCH ×4 (06:35→21:31)
[2021-04-02 09:48] LABS: HEMATOCRIT 25.3 % (32.4-45.2); HEMOGLOBIN 8.1 GM/dL (10.7-15.3); MCH 24.8 pg (25.7-33.7); MEAN CELL VOLUME 77.4 fl (80-96); MEAN PLT VOLUME 8.3 fl (7.5-11.1); PLATELET COUNT 313 10^3/uL (134-434); RBC 3.26 M/mm3 (3.60-5.2); WHITE BLOOD COUNT 18.8 K/mm3 (4.0-10.0)
[2021-04-02] MEDS ORDERED: HYDROCHLOROTHIAZIDE 12.5 MG CAPSULE (FP) PO SCH (10:00)
[2021-04-02] MEDS ORDERED: DEXTROSE 5%-WATER 100 ML IVPB ONE (10:19)
[2021-04-02 10:25] LABS: CALCIUM 8.3 mg/dL (8.5-10.1); MAGNESIUM 2.2 mg/dL (1.8-2.4)
[2021-04-02] MEDS: CEFTRIAXONE 2 GM in DEXTROSE 5%-WATER 2 GM/100 ML BAG IVPB SCH (10:25)
[2021-04-02] MEDS: VALSARTAN 160 MG TABLET PO SCH (10:25)
[2021-04-02] MEDS: MIRTAZAPINE 15 MG TABLET (FP) PO SCH (10:25)
[2021-04-02] MEDS: NIFEdipine E.R. 90 MG TABLET PO SCH (10:25)
[2021-04-02 10:26] LABS: BLOOD UREA NITROGEN 14.1 mg/dL (7-18)
[2021-04-02] MEDS: ASPIRIN 81 MG CHEWABLE TABLETS PO SCH (10:26)
[2021-04-02 10:28] LABS: PHOSPHOROUS 2.3 mg/dL (2.5-4.9)
[2021-04-02 10:29] LABS: TOT PROT 7.9 g/dl (6.4-8.2)
[2021-04-02 10:45] LABS: ANISOCYTOSIS 1+; MACROCYTOSIS 1+; PLATELET ESTIMATE NORMAL
[2021-04-02 10:53] LABS: BILIRUBIN,TOTAL 0.3 mg/dL (0.2-1)
[2021-04-03] MEDS: HEPARIN NA (PORCINE) 5,000 UNITS/ML 1ML VIAL SQ SCH ×3 (06:41→21:36)
[2021-04-03] MEDS: INSULIN SLIDING SCALE (NOVOLOG) 1 VIAL SQ SCH ×5 (06:42→22:30)
[2021-04-03] MEDS ORDERED: INSULIN (NOVOLOG) ASPART 100 UNITS/ML 10ML VIAL ONE (06:55)
[2021-04-03] MEDS ORDERED: PT OWN MED DRAWER 7, Y5N ONE (09:05)
[2021-04-03] MEDS ORDERED: DEXTROSE 5%-WATER 100 ML IVPB ONE (09:05)
[2021-04-03] MEDS: NIFEdipine E.R. 90 MG TABLET PO SCH (09:08)
[2021-04-03] MEDS: CEFTRIAXONE 2 GM in DEXTROSE 5%-WATER 2 GM/100 ML BAG IVPB SCH (09:08)
[2021-04-03] MEDS: VALSARTAN 160 MG TABLET PO SCH (09:08)
[2021-04-03] MEDS: ASPIRIN 81 MG CHEWABLE TABLETS PO SCH (09:08)
[2021-04-03] MEDS: MIRTAZAPINE 15 MG TABLET (FP) PO SCH (09:08)
[2021-04-03 10:04] LABS: HEMOGLOBIN 8.3 GM/dL (10.7-15.3); MCH 24.7 pg (25.7-33.7); MEAN PLT VOLUME 8.3 fl (7.5-11.1); PLATELET COUNT 362 10^3/uL (134-434); RBC 3.37 M/mm3 (3.60-5.2); RDW 15.7 % (11.6-15.6); WHITE BLOOD COUNT 13.1 K/mm3 (4.0-10.0)
[2021-04-03] MEDS: METHIMAZOLE 10 MG TABLET PO SCH (10:31)
[2021-04-03 10:47] LABS: BILIRUBIN,TOTAL 0.8 mg/dL (0.2-1); BLOOD UREA NITROGEN 9.8 mg/dL (7-18); CALCIUM 8.9 mg/dL (8.5-10.1); CREATININE 0.9 mg/dL (0.55-1.3); MAGNESIUM 2.1 mg/dL (1.8-2.4); PHOSPHOROUS 2.4 mg/dL (2.5-4.9); TOT PROT 7.9 g/dl (6.4-8.2)
[2021-04-03 11:12] LABS: ANISOCYTOSIS 0; HELMET CELLS 0; HOWELL-JOLLY BODIES 0; MACROCYTOSIS 0; OVALOCYTE 0; PLATELET ESTIMATE NORMAL; ROULEAU 0; SICKELED CELLS 0; TARGET CELLS 0; TEAR DROP CELLS 0; TOXIC GRANULATION 0
[2021-04-03] MEDS: NAPH,MB-DB/K PH,MBDB POWDER PACKET PO SCH ×2 (13:45→21:38)
[2021-04-03] MEDS ORDERED: INSULIN (LEVEMIR) 100 UNITS/ML UNITS SQ SCH (22:00)
[2021-04-03] MEDS: INSULIN (LEVEMIR) 100 UNITS/ML UNITS SQ SCH (22:30)
[2021-04-04] MEDS: INSULIN SLIDING SCALE (NOVOLOG) 1 VIAL SQ SCH ×4 (06:46→21:01)
[2021-04-04] MEDS: HEPARIN NA (PORCINE) 5,000 UNITS/ML 1ML VIAL SQ SCH ×3 (06:46→21:00)
[2021-04-04] MEDS: INSULIN (LEVEMIR) 100 UNITS/ML UNITS SQ SCH ×2 (06:46→21:01)
[2021-04-04 08:51] LABS: BASO % 0.8 % (0-2.0); EOS % 1.6 % (0-4.5); HEMATOCRIT 26.3 % (32.4-45.2); HEMOGLOBIN 8.5 GM/dL (10.7-15.3); LYMPH % 24.8 % (8-40); MCH 25.1 pg (25.7-33.7); MCHC 32.4 g/dl (32.0-36.0); MEAN CELL VOLUME 77.6 fl (80-96); MEAN PLT VOLUME 8.5 fl (7.5-11.1); MONO % 6.8 % (3.8-10.2); PLATELET COUNT 378 10^3/uL (134-434); RDW 15.7 % (11.6-15.6); WHITE BLOOD COUNT 10.9 K/mm3 (4.0-10.0)
[2021-04-04 09:20] LABS: BLOOD UREA NITROGEN 7.3 mg/dL (7-18); CALCIUM 8.8 mg/dL (8.5-10.1); MAGNESIUM 1.8 mg/dL (1.8-2.4)
[2021-04-04 09:23] LABS: CREATININE 0.8 mg/dL (0.55-1.3); PHOSPHOROUS 3.5 mg/dL (2.5-4.9)
[2021-04-04 09:24] LABS: BILIRUBIN,TOTAL 0.3 mg/dL (0.2-1); TOT PROT 7.6 g/dl (6.4-8.2)
[2021-04-04] MEDS ORDERED: POTASSIUM CHLORIDE ORAL LIQUID 20 MEQ/15 ML PO ONE (09:32)
[2021-04-04] MEDS ORDERED: PT OWN MED DRAWER 7, Y5N ONE ×2 (09:41→11:55)
[2021-04-04] MEDS ORDERED: DEXTROSE 5%-WATER 100 ML IVPB ONE (09:41)
[2021-04-04] MEDS: CEFTRIAXONE 2 GM in DEXTROSE 5%-WATER 2 GM/100 ML BAG IVPB SCH (10:03)
[2021-04-04] MEDS: NAPH,MB-DB/K PH,MBDB POWDER PACKET PO SCH (10:04)
[2021-04-04] MEDS: VALSARTAN 160 MG TABLET PO SCH (10:04)
[2021-04-04] MEDS: NIFEdipine E.R. 90 MG TABLET PO SCH (10:04)
[2021-04-04] MEDS: MIRTAZAPINE 15 MG TABLET (FP) PO SCH (10:04)
[2021-04-04] MEDS: METHIMAZOLE 10 MG TABLET PO SCH (10:04)
[2021-04-04] MEDS: ASPIRIN 81 MG CHEWABLE TABLETS PO SCH (10:04)
[2021-04-04] MEDS ORDERED: INSULIN (NOVOLOG) ASPART 100 UNITS/ML 10ML VIAL ONE ×2 (11:22→20:47)
[2021-04-04] MEDS ORDERED: FLU VACC QS2021-22(6MOS UP)/PF 60 MCG/0.5 ML SYRINGE IM ONE (11:30)
[2021-04-04] MEDS: FAMOTIDINE 20 MG TABLET PO SCH (16:58)
[2021-04-05] MEDS: HEPARIN NA (PORCINE) 5,000 UNITS/ML 1ML VIAL SQ SCH (05:55)
[2021-04-05] MEDS: INSULIN SLIDING SCALE (NOVOLOG) 1 VIAL SQ SCH ×2 (06:08→12:10)
[2021-04-05] MEDS: INSULIN (LEVEMIR) 100 UNITS/ML UNITS SQ SCH (06:09)
[2021-04-05 08:18] LABS: HEMATOCRIT 26.8 % (32.4-45.2); HEMOGLOBIN 8.6 GM/dL (10.7-15.3); MCH 24.8 pg (25.7-33.7); MCHC 32.2 g/dl (32.0-36.0); MEAN PLT VOLUME 8.3 fl (7.5-11.1); PLATELET COUNT 415 10^3/uL (134-434); RBC 3.48 M/mm3 (3.60-5.2); RDW 15.8 % (11.6-15.6); WHITE BLOOD COUNT 12.5 K/mm3 (4.0-10.0)
[2021-04-05 08:53] LABS: ALBUMIN 2.2 g/dl (3.4-5.0); CALCIUM 9.8 mg/dL (8.5-10.1)
[2021-04-05 08:54] LABS: MAGNESIUM 1.9 mg/dL (1.8-2.4)
[2021-04-05 08:57] LABS: CREATININE 0.8 mg/dL (0.55-1.3); PHOSPHOROUS 4.1 mg/dL (2.5-4.9)
[2021-04-05 08:58] LABS: BILIRUBIN,TOTAL 0.3 mg/dL (0.2-1); TOT PROT 7.9 g/dl (6.4-8.2)
[2021-04-05 09:33] LABS: ANISOCYTOSIS 1+; MACROCYTOSIS 0; PLATELET ESTIMATE NORMAL
[2021-04-05] MEDS ORDERED: DEXTROSE 5%-WATER 100 ML IVPB ONE (10:20)
[2021-04-05] MEDS ORDERED: PT OWN MED DRAWER 7, Y5N ONE (10:20)
[2021-04-05] MEDS: ASPIRIN 81 MG CHEWABLE TABLETS PO SCH (10:29)
[2021-04-05] MEDS: MIRTAZAPINE 15 MG TABLET (FP) PO SCH (10:29)
[2021-04-05] MEDS: NIFEdipine E.R. 90 MG TABLET PO SCH (10:29)
[2021-04-05] MEDS: FAMOTIDINE 20 MG TABLET PO SCH (10:29)
[2021-04-05] MEDS: VALSARTAN 160 MG TABLET PO SCH (10:29)
[2021-04-05] MEDS: METHIMAZOLE 10 MG TABLET PO SCH (10:30)
[2021-04-05] MEDS: CEFTRIAXONE 2 GM in DEXTROSE 5%-WATER 2 GM/100 ML BAG IVPB SCH ×2 (10:30→11:57)
[2021-04-05 10:50] VITALS: BP 144/66; PULSE 111; TEMP 97.8
[2021-04-05] MEDS ORDERED: CEFPODOXIME PROXETIL 200 MG TABLET [NF] PO ONE (12:15)
[2021-04-05] MEDS ORDERED: CEFPODOXIME PROXETIL 100 MG TABLET PO ONE (12:15)
== END 2021-04-05 14:26 | disposition home or self-care (01) | DRG 720 ==
LOC: JER 23:06 → JERBED 04-01 03:37 → J6S 04-01 18:06
PROVIDERS: ADMIT Internal Medicine
PROC: XW033G6 Introduction of REGN-COV2 Monoclonal Antibody into Peripheral Vein, Percutaneous Approach, New Technology Group 6 (ICD-10-PCS; principal; 2021-04-01)
DX: A41.89 Other specified sepsis (principal); U07.1 COVID-19; J12.82 Pneumonia due to coronavirus disease 2019; N17.9 Acute kidney failure, unspecified; G93.41 Metabolic encephalopathy; E11.42 Type 2 diabetes mellitus with diabetic polyneuropathy; I69.354 Hemiplegia and hemiparesis following cerebral infarction affecting left non-dominant side; N13.6 Pyonephrosis; D50.9 Iron deficiency anemia, unspecified; E78.5 Hyperlipidemia, unspecified; I10 Essential (primary) hypertension; E87.1 Hypo-osmolality and hyponatremia; E05.90 Thyrotoxicosis, unspecified without thyrotoxic crisis or storm; J96.01 Acute respiratory failure with hypoxia; R35.0 Frequency of micturition; R65.20 Severe sepsis without septic shock; R63.0 Anorexia; Z68.29 Body mass index [BMI] 29.0-29.9, adult; J98.9 Respiratory disorder, unspecified; R50.9 Fever, unspecified; R00.0 Tachycardia, unspecified; R41.0 Disorientation, unspecified; E11.65 Type 2 diabetes mellitus with hyperglycemia; Z95.0 Presence of cardiac pacemaker; D32.9 Benign neoplasm of meninges, unspecified; E27.9 Disorder of adrenal gland, unspecified
CPT/HCPCS: 36415; 70450-TC; 71045-TC-FY; 74176-TC; 76775-TC; 80048; 80053; 81003; 82024; 82272; 82308; 82310; 82533; 82728; 82962; 83540; 83550; 83605; 83615; 83735; 83970; 84100; 84439; 84443; 84484; 85025; 85027; 85379; 85610; 85730; 86140; 86850; 86900; 86901; 87040; 87086; 87186; 87804; 90686; 93005; 93010; 94761; 97116-GP; 97162-GP; 99285-25; C9803; G0008; J0131; J1644; Q0240; U0003; U0005

== ENCOUNTER 2021-04-20 10:58 | Day surgery (SDC) | payer OTHER ==
[2021-04-20] MEDS ORDERED: FERRIC CARBOXYMALTOSE 750 MG in SODIUM CHLORIDE 250 ML IVPB SCH (12:00)
[2021-04-20 15:05] VITALS: BP 142/64; PULSE 70; TEMP 98.4
== END 2021-04-20 13:15 | disposition home or self-care (01) ==
LOC: FINFUSION 10:58 → FM/S 11:05 → FINFUSION 13:15
PROVIDERS: ATTEND Family Medicine
PROC: 3E033GC Introduction of Other Therapeutic Substance into Peripheral Vein, Percutaneous Approach (ICD-10-PCS; principal; 2021-04-20)
DX: D50.9 Iron deficiency anemia, unspecified (principal)
CPT/HCPCS: 96365; J1439

== ENCOUNTER 2021-04-27 09:13 | Day surgery (SDC) | payer OTHER ==
[2021-04-27] MEDS ORDERED: FERRIC CARBOXYMALTOSE 750 MG in SODIUM CHLORIDE 250 ML IVPB SCH (10:15)
[2021-04-27 10:30] VITALS: TEMP 99.8
[2021-04-27 12:09] VITALS: BP 126/56; PULSE 90
== END 2021-04-27 12:12 | disposition home or self-care (01) ==
LOC: FINFUSION 09:13 → FM/S 09:18 → FINFUSION 12:12
PROVIDERS: ATTEND Family Medicine
PROC: 3E033GC Introduction of Other Therapeutic Substance into Peripheral Vein, Percutaneous Approach (ICD-10-PCS; principal; 2021-04-27)
DX: D50.9 Iron deficiency anemia, unspecified (principal)
CPT/HCPCS: 96365; C9803; J1439; U0003; U0005

== ENCOUNTER → 2023-04-23 | Day surgery (SDC) | payer OTHER | END | disposition home or self-care (01) | LOC: JRADIR 11:25 | PROVIDERS: ATTEND Internal Medicine Endocrinology, Diabetes & Metabolism | PROC: 0G9K3ZX Drainage of Thyroid Gland, Percutaneous Approach, Diagnostic (ICD-10-PCS; principal; 2023-04-23) | DX: E04.1 Nontoxic single thyroid nodule (principal) | CPT/HCPCS: 76942; 88173; 88305-TC ==

== ENCOUNTER 2023-05-30 14:42 | Inpatient (IN) | payer OTHER ==
[2023-05-30] MEDS ORDERED: DEXTROSE 50%-WATER - 25 GM/50 ML VIAL IVPUSH ONE (15:02)
[2023-05-30] MEDS ORDERED: DEXTROSE 50%-WATER 25 GM/50 ML DISP.SYRIN ONE (15:03)
[2023-05-30 16:44] LABS: ACTIVATED PTT 36.5 SECONDS (25.2-36.5); EPI CELLS 2 /uL (0-25.1); HYALINE CASTS 0 /uL (0-3.1); INR 1.16 (0.83-1.09); PH,URINE 5.5 (5.0-8.0); PROTHROMBIN TIME (PATIENT) 13.4 SEC (9.7-13.0); URINE APPEARANCE CLOUDY; URINE BACTERIA 25 /uL (0-1359); URINE BILIRUBIN NEGATIVE (NEGATIVE); URINE COLOR YELLOW; URINE GLUCOSE (UA) 2+ (NEGATIVE); URINE KETONE NEGATIVE (NEGATIVE); URINE LEUK ESTERASE 3+ (NEGATIVE); URINE NITRITE NEGATIVE (NEGATIVE); URINE PROTEIN TRACE (NEGATIVE); URINE RBC 11 /uL (0-23.9); URINE UROBILINOGEN 0.2 mg/dL (0.2-1.0); URINE WBC 966 /uL (0-25.8)
[2023-05-30 16:46] LABS: MCH 25.3 pg (25.7-33.7); MCHC 32.2 g/dl (32.0-36.0); MEAN CELL VOLUME 78.4 fl (80-96); MEAN PLT VOLUME 8.3 fl (7.5-11.1); PLATELET COUNT 322 10^3/uL (134-434); RBC 4.34 M/mm3 (3.60-5.2); RDW 17.1 % (11.6-15.6); WHITE BLOOD COUNT 10.8 K/mm3 (4.0-10.0)
[2023-05-30 16:52] LABS: POTASSIUM 5.1 mmol/L (3.5-5.1)
[2023-05-30 16:54] LABS: CALCIUM 9.4 mg/dL (8.5-10.1)
[2023-05-30 16:55] LABS: ALBUMIN 3.4 g/dl (3.4-5.0); BLOOD UREA NITROGEN 18.1 mg/dL (7-18)
[2023-05-30 16:58] LABS: CREATININE 1.2 mg/dL (0.55-1.3)
[2023-05-30 16:59] LABS: BILIRUBIN,TOTAL 0.1 mg/dL (0.2-1); TOT PROT 8.6 g/dl (6.4-8.2)
[2023-05-30] MEDS ORDERED: CEFTRIAXONE 1,000 MG in DEXTROSE 5%-WATER - 50 ML IVPB ONE (17:13)
[2023-05-30 17:20] LABS: LACTIC ACID 3.2 mmol/L (0.4-2.0)
[2023-05-30] MEDS ORDERED: CEFTRIAXONE 1 GM/50 ML BAG ONE (17:21)
[2023-05-30 17:28] LABS: YEAST PRESENT (NEGATIVE)
[2023-05-30 18:02] LABS: ANISOCYTOSIS 0; MACROCYTOSIS 0
[2023-05-30] MEDS ORDERED: SODIUM CHLORIDE 0.9% 500 ML INFUS.BAG IV ONE (18:28)
[2023-05-30] MEDS ORDERED: VANCOMYCIN 1,000 MG in DEXTROSE 5%-WATER - 250 ML IVPB ONE (20:53)
[2023-05-30] MEDS ORDERED: VANCOMYCIN 1 GRAM (PRE-DOCKED) 1,000 MG/250 ML BAG IVPB ONE ×2 (20:56→22:00)
[2023-05-30] MEDS ORDERED: INSULIN ASPART SLIDING SCALE (NOVOLOG) 1 VIAL SQ SCH (22:00)
[2023-05-30 23:41] VITALS: BMI 28.0
[2023-05-31] MEDS: AMITRIPTYLINE HCL 10 MG TABLET PO SCH ×2 (00:24→21:46)
[2023-05-31] MEDS: INSULIN ASPART SLIDING SCALE (NOVOLOG) 1 VIAL SQ SCH ×5 (00:25→21:44)
[2023-05-31] MEDS ORDERED: DEXTROSE 50%-WATER 25 GM/50 ML DISP.SYRIN IVPUSH ONE (06:40)
[2023-05-31 07:17] LABS: HEMATOCRIT 32.8 % (32.4-45.2); HEMOGLOBIN 10.4 GM/dL (10.7-15.3); MCH 25.2 pg (25.7-33.7); MCHC 31.8 g/dl (32.0-36.0); MEAN CELL VOLUME 79.2 fl (80-96); MEAN PLT VOLUME 8.9 fl (7.5-11.1); PLATELET COUNT 338 10^3/uL (134-434); RBC 4.14 M/mm3 (3.60-5.2); WHITE BLOOD COUNT 10.5 K/mm3 (4.0-10.0)
[2023-05-31 07:38] LABS: CHLORIDE 110 mmol/L (98-107); POTASSIUM 4.4 mmol/L (3.5-5.1); SODIUM 140 mmol/L (136-145)
[2023-05-31 07:46] LABS: CALCIUM 9.4 mg/dL (8.5-10.1)
[2023-05-31 07:47] LABS: ALBUMIN 3.2 g/dl (3.4-5.0); ANION GAP 5 mmol/L (4-13); BLOOD UREA NITROGEN 16.9 mg/dL (7-18); CO2 25 mmol/L (21-32); MAGNESIUM 2.3 mg/dL (1.8-2.4)
[2023-05-31 07:50] LABS: CREATININE 1.1 mg/dL (0.55-1.3); PHOSPHOROUS 3.8 mg/dL (2.5-4.9); SGOT/AST 19 U/L (15-37)
[2023-05-31 07:51] LABS: BILIRUBIN,TOTAL 0.6 mg/dL (0.2-1); SGPT/ALT 24 U/L (13-61); TOT PROT 7.9 g/dl (6.4-8.2)
[2023-05-31 07:53] LABS: ALK PHOS 78 U/L (45-117)
[2023-05-31 08:38] LABS: GLUCOSE,RANDOM 19 mg/dL (74-106)
[2023-05-31] MEDS ORDERED: PNEUMOC 20-VAL CONJ-DIP CRM/PF 0.5 ML SYRINGE IM ONE (10:00)
[2023-05-31] MEDS: SOLIFENACIN SUCCINATE 5 MG TAB PO SCH (10:11)
[2023-05-31] MEDS: FAMOTIDINE 20 MG TABLET PO SCH (10:11)
[2023-05-31] MEDS: VALSARTAN 160 MG TABLET PO SCH (10:11)
[2023-05-31] MEDS: CHOLECALCIFEROL (VIT D3) 1,000 UNIT (25 MCG) TABLET PO SCH (10:12)
[2023-05-31] MEDS: ENOXAPARIN NA (PORCINE) 40 MG/0.4 ML DISP.SYRIN SQ SCH (10:12)
[2023-05-31] MEDS: NIFEdipine E.R. 90 MG TABLET PO SCH (10:12)
[2023-05-31] MEDS: ASPIRIN 81 MG CHEWABLE TABLETS PO SCH (10:12)
[2023-05-31] MEDS: DEXTROSE 5%-0.45% SALINE 1,000 ML IV SCH (15:00)
[2023-05-31] MEDS: CEFTRIAXONE 1 GM in DEXTROSE 5%-WATER - 50 ML IVPB SCH (16:07)
[2023-06-01] MEDS ORDERED: ACETAMINOPHEN 325 MG TABLET (FP) PO PRN (01:36)
[2023-06-01] MEDS: INSULIN ASPART SLIDING SCALE (NOVOLOG) 1 VIAL SQ SCH ×4 (06:02→22:43)
[2023-06-01] MEDS: DEXTROSE 5%-0.45% SALINE 1,000 ML IV SCH ×2 (06:05→14:00)
[2023-06-01 07:58] LABS: BASO % 0.3 % (0-2.0); EOS % 1.6 % (0-4.5); HEMATOCRIT 30.6 % (32.4-45.2); LYMPH % 34.4 % (8-40); MCH 25.8 pg (25.7-33.7); MCHC 32.6 g/dl (32.0-36.0); MEAN CELL VOLUME 79.2 fl (80-96); MEAN PLT VOLUME 9.3 fl (7.5-11.1); MONO % 9.4 % (3.8-10.2); NEUT % 54.3 % (42.8-82.8); PLATELET COUNT 285 10^3/uL (134-434); RBC 3.87 M/mm3 (3.60-5.2); RDW 16.9 % (11.6-15.6); WHITE BLOOD COUNT 8.8 K/mm3 (4.0-10.0)
[2023-06-01 08:22] LABS: POTASSIUM 4.8 mmol/L (3.5-5.1)
[2023-06-01 08:25] LABS: ALBUMIN 2.9 g/dl (3.4-5.0); CALCIUM 9.2 mg/dL (8.5-10.1)
[2023-06-01 08:26] LABS: BLOOD UREA NITROGEN 18.1 mg/dL (7-18)
[2023-06-01 08:28] LABS: CREATININE 1.5 mg/dL (0.55-1.3)
[2023-06-01 08:31] LABS: BILIRUBIN,TOTAL 0.2 mg/dL (0.2-1); TOT PROT 7.5 g/dl (6.4-8.2)
[2023-06-01] MEDS: ENOXAPARIN NA (PORCINE) 40 MG/0.4 ML DISP.SYRIN SQ SCH (09:53)
[2023-06-01] MEDS: ASPIRIN 81 MG CHEWABLE TABLETS PO SCH (09:53)
[2023-06-01] MEDS: VALSARTAN 160 MG TABLET PO SCH (09:53)
[2023-06-01] MEDS: FAMOTIDINE 20 MG TABLET PO SCH (09:53)
[2023-06-01] MEDS: CHOLECALCIFEROL (VIT D3) 1,000 UNIT (25 MCG) TABLET PO SCH (09:54)
[2023-06-01] MEDS: NIFEdipine E.R. 90 MG TABLET PO SCH (09:54)
[2023-06-01] MEDS: SOLIFENACIN SUCCINATE 5 MG TAB PO SCH (09:55)
[2023-06-01] MEDS: CEFTRIAXONE 1 GM in DEXTROSE 5%-WATER - 50 ML IVPB SCH (17:57)
[2023-06-01] MEDS: AMITRIPTYLINE HCL 10 MG TABLET PO SCH (22:43)
[2023-06-02] MEDS: INSULIN ASPART SLIDING SCALE (NOVOLOG) 1 VIAL SQ SCH ×4 (06:40→21:57)
[2023-06-02] MEDS: VALSARTAN 160 MG TABLET PO SCH (10:37)
[2023-06-02] MEDS: ASPIRIN 81 MG CHEWABLE TABLETS PO SCH (10:37)
[2023-06-02] MEDS: FAMOTIDINE 20 MG TABLET PO SCH (10:37)
[2023-06-02] MEDS: ENOXAPARIN NA (PORCINE) 40 MG/0.4 ML DISP.SYRIN SQ SCH (10:37)
[2023-06-02] MEDS: NIFEdipine E.R. 90 MG TABLET PO SCH (10:37)
[2023-06-02] MEDS: CHOLECALCIFEROL (VIT D3) 1,000 UNIT (25 MCG) TABLET PO SCH (10:37)
[2023-06-02] MEDS: SOLIFENACIN SUCCINATE 5 MG TAB PO SCH (10:38)
[2023-06-02] MEDS: CEFTRIAXONE 1 GM in DEXTROSE 5%-WATER - 50 ML IVPB SCH (18:04)
[2023-06-02] MEDS ORDERED: INSULIN (NOVOLOG) ASPART 100 UNITS/ML 10ML VIAL ONE (21:15)
[2023-06-02] MEDS: AMITRIPTYLINE HCL 10 MG TABLET PO SCH (21:57)
[2023-06-03] MEDS: INSULIN ASPART SLIDING SCALE (NOVOLOG) 1 VIAL SQ SCH ×4 (06:28→21:49)
[2023-06-03 06:43] LABS: POTASSIUM 4.5 mmol/L (3.5-5.1)
[2023-06-03 06:45] LABS: ALBUMIN 2.9 g/dl (3.4-5.0)
[2023-06-03 06:46] LABS: BLOOD UREA NITROGEN 18.6 mg/dL (7-18)
[2023-06-03 06:49] LABS: CREATININE 1.3 mg/dL (0.55-1.3)
[2023-06-03 06:50] LABS: BILIRUBIN,TOTAL 0.2 mg/dL (0.2-1); TOT PROT 7.8 g/dl (6.4-8.2)
[2023-06-03 06:53] LABS: BASO % 0.3 % (0-2.0); EOS % 1.2 % (0-4.5); HEMATOCRIT 32.1 % (32.4-45.2); HEMOGLOBIN 10.1 GM/dL (10.7-15.3); LYMPH % 21.1 % (8-40); MCHC 31.4 g/dl (32.0-36.0); MEAN CELL VOLUME 79.5 fl (80-96); MEAN PLT VOLUME 8.9 fl (7.5-11.1); MONO % 7.9 % (3.8-10.2); NEUT % 69.5 % (42.8-82.8); PLATELET COUNT 309 10^3/uL (134-434); RBC 4.04 M/mm3 (3.60-5.2); RDW 16.8 % (11.6-15.6); WHITE BLOOD COUNT 12.9 K/mm3 (4.0-10.0)
[2023-06-03] MEDS: ENOXAPARIN NA (PORCINE) 40 MG/0.4 ML DISP.SYRIN SQ SCH (09:20)
[2023-06-03] MEDS: FAMOTIDINE 20 MG TABLET PO SCH (09:20)
[2023-06-03] MEDS: VALSARTAN 160 MG TABLET PO SCH (09:20)
[2023-06-03] MEDS: ASPIRIN 81 MG CHEWABLE TABLETS PO SCH (09:20)
[2023-06-03] MEDS: NIFEdipine E.R. 90 MG TABLET PO SCH (09:20)
[2023-06-03] MEDS: SOLIFENACIN SUCCINATE 5 MG TAB PO SCH (09:23)
[2023-06-03] MEDS: CHOLECALCIFEROL (VIT D3) 1,000 UNIT (25 MCG) TABLET PO SCH (09:23)
[2023-06-03] MEDS: DEXTROSE 5%-0.45% SALINE 1,000 ML IV SCH (09:25)
[2023-06-03] MEDS: CEFTRIAXONE 1 GM in DEXTROSE 5%-WATER - 50 ML IVPB SCH (16:19)
[2023-06-03] MEDS ORDERED: INSULIN (NOVOLOG) ASPART 100 UNITS/ML 10ML VIAL ONE (21:38)
[2023-06-03] MEDS: AMITRIPTYLINE HCL 10 MG TABLET PO SCH (21:49)
[2023-06-04] MEDS: INSULIN ASPART SLIDING SCALE (NOVOLOG) 1 VIAL SQ SCH ×4 (06:08→21:09)
[2023-06-04 07:22] LABS: POTASSIUM 4.5 mmol/L (3.5-5.1)
[2023-06-04 07:27] LABS: CALCIUM 9.2 mg/dL (8.5-10.1)
[2023-06-04 07:28] LABS: BLOOD UREA NITROGEN 20.3 mg/dL (7-18)
[2023-06-04 07:29] LABS: CREATININE 1.4 mg/dL (0.55-1.3)
[2023-06-04 07:31] LABS: BILIRUBIN,TOTAL 0.2 mg/dL (0.2-1); TOT PROT 8.4 g/dl (6.4-8.2)
[2023-06-04 07:32] LABS: BASO % 0.3 % (0-2.0); EOS % 1.2 % (0-4.5); HEMOGLOBIN 10.2 GM/dL (10.7-15.3); LYMPH % 24.8 % (8-40); MCH 25.8 pg (25.7-33.7); MCHC 32.8 g/dl (32.0-36.0); MEAN CELL VOLUME 78.6 fl (80-96); MEAN PLT VOLUME 9.2 fl (7.5-11.1); MONO % 8.6 % (3.8-10.2); NEUT % 65.1 % (42.8-82.8); PLATELET COUNT 247 10^3/uL (134-434); RBC 3.94 M/mm3 (3.60-5.2); RDW 17.4 % (11.6-15.6)
[2023-06-04 09:14] LABS: PLATELET ESTIMATE ADEQUATE
[2023-06-04] MEDS: ENOXAPARIN NA (PORCINE) 40 MG/0.4 ML DISP.SYRIN SQ SCH (09:32)
[2023-06-04] MEDS: FAMOTIDINE 20 MG TABLET PO SCH (09:33)
[2023-06-04] MEDS: NIFEdipine E.R. 90 MG TABLET PO SCH (09:34)
[2023-06-04] MEDS: CHOLECALCIFEROL (VIT D3) 1,000 UNIT (25 MCG) TABLET PO SCH (09:34)
[2023-06-04] MEDS: VALSARTAN 160 MG TABLET PO SCH (09:34)
[2023-06-04] MEDS: SOLIFENACIN SUCCINATE 5 MG TAB PO SCH (09:35)
[2023-06-04] MEDS: ASPIRIN 81 MG CHEWABLE TABLETS PO SCH (09:35)
[2023-06-04] MEDS: CEFTRIAXONE 1 GM in DEXTROSE 5%-WATER - 50 ML IVPB SCH (18:24)
[2023-06-04] MEDS: AMITRIPTYLINE HCL 10 MG TABLET PO SCH (21:09)
[2023-06-05 06:31] VITALS: RESP 18
[2023-06-05] MEDS: INSULIN ASPART SLIDING SCALE (NOVOLOG) 1 VIAL SQ SCH ×2 (06:49→11:29)
[2023-06-05] MEDS: VALSARTAN 160 MG TABLET PO SCH (09:21)
[2023-06-05] MEDS: NIFEdipine E.R. 90 MG TABLET PO SCH (09:21)
[2023-06-05] MEDS: SOLIFENACIN SUCCINATE 5 MG TAB PO SCH (09:21)
[2023-06-05] MEDS: FAMOTIDINE 20 MG TABLET PO SCH (09:21)
[2023-06-05] MEDS: ENOXAPARIN NA (PORCINE) 40 MG/0.4 ML DISP.SYRIN SQ SCH (09:21)
[2023-06-05] MEDS: ASPIRIN 81 MG CHEWABLE TABLETS PO SCH (09:21)
[2023-06-05] MEDS: CHOLECALCIFEROL (VIT D3) 1,000 UNIT (25 MCG) TABLET PO SCH (09:21)
[2023-06-05 09:23] VITALS: BP 149/69; PULSE 91; TEMP 98
[2023-06-05] MEDS ORDERED: CEFUROXIME AXETIL 250 MG TABLET PO SCH (10:00)
[2023-06-05] MEDS ORDERED: INSULIN (NOVOLOG) ASPART 100 UNITS/ML 10ML VIAL ONE (11:24)
== END 2023-06-05 14:26 | disposition home or self-care (01) | DRG 420 ==
LOC: JER 14:42 → JERBED 18:40 → J4W 23:13
PROVIDERS: ADMIT Internal Medicine; ATTEND Internal Medicine
DX: E11.649 Type 2 diabetes mellitus with hypoglycemia without coma (principal); I69.354 Hemiplegia and hemiparesis following cerebral infarction affecting left non-dominant side; N39.0 Urinary tract infection, site not specified; E05.90 Thyrotoxicosis, unspecified without thyrotoxic crisis or storm; I10 Essential (primary) hypertension
CPT/HCPCS: 0241U-QW; 36415; 70450-TC; 71045-TC-FY; 80053; 80061; 81003; 82550; 82962; 83036; 83605; 83735; 84100; 84439; 84443; 84484; 85025; 85027; 85610; 85730; 87040; 87086; 90677; 93005; 93010; 97116-GP; 99285-25

== ENCOUNTER → 2023-08-19 | Day surgery (SDC) | payer OTHER | END | disposition home or self-care (01) | LOC: JRADIR 09:42 | PROVIDERS: ATTEND Internal Medicine Endocrinology, Diabetes & Metabolism | PROC: 0G9G3ZX Drainage of Left Thyroid Gland Lobe, Percutaneous Approach, Diagnostic (ICD-10-PCS; principal; 2023-08-19) | DX: E04.1 Nontoxic single thyroid nodule (principal) | CPT/HCPCS: 10005; 76942 ==

== ENCOUNTER → 2023-10-29 | Day surgery (SDC) | payer OTHER | END | disposition home or self-care (01) | LOC: JRADIR 09:01 | PROVIDERS: ATTEND Internal Medicine Endocrinology, Diabetes & Metabolism | PROC: 0G9H3ZX Drainage of Right Thyroid Gland Lobe, Percutaneous Approach, Diagnostic (ICD-10-PCS; principal; 2023-10-29) | DX: E04.1 Nontoxic single thyroid nodule (principal) | CPT/HCPCS: 10005; 76942; 88173; 88305-TC ==

== ENCOUNTER 2024-06-07 08:19 | Inpatient (IN) | payer OTHER ==
[2024-06-07 08:27] VITALS: BMI 26.5
[2024-06-07] MEDS ORDERED: ACETAMINOPHEN INJECTION 100 ML ONE (09:11)
[2024-06-07 09:59] LABS: HEMATOCRIT 29.9 % (32.4-45.2); HEMOGLOBIN 9.3 GM/dL (10.7-15.3); MCH 25.7 pg (25.7-33.7); MCHC 31.3 g/dl (32.0-36.0); MEAN CELL VOLUME 82.1 fl (80-96); MEAN PLT VOLUME 8.1 fl (7.5-11.1); PLATELET COUNT 429 10^3/uL (134-434); RBC 3.64 M/mm3 (3.60-5.2); RDW 16.9 % (11.6-15.6); WHITE BLOOD COUNT 11.4 K/mm3 (4.0-10.0)
[2024-06-07 10:16] LABS: POTASSIUM 5.1 mmol/L (3.5-5.1)
[2024-06-07 10:18] LABS: ALBUMIN 3.2 g/dl (3.4-5.0); BLOOD UREA NITROGEN 24.8 mg/dL (7-18)
[2024-06-07 10:23] LABS: BILIRUBIN,TOTAL 0.2 mg/dL (0.2-1); TOT PROT 10.1 g/dl (6.4-8.2)
[2024-06-07] MEDS: ACETAMINOPHEN 1000 MG/100 ML BAG IVPB ONE ×2 (10:49→18:21)
[2024-06-07] MEDS ORDERED: ACETAMINOPHEN 500 MG TABLET (FP) ONE (10:50)
[2024-06-07] MEDS: ACETAMINOPHEN 500 MG TABLET (FP) PO ONE (10:52)
[2024-06-07 11:21] LABS: ANISOCYTOSIS 0; HELMET CELLS 0; HOWELL-JOLLY BODIES 0; MACROCYTOSIS 0; OVALOCYTE 0; ROULEAU 0; SICKELED CELLS 0; TARGET CELLS 0; TEAR DROP CELLS 0; TOXIC GRANULATION 0
[2024-06-07] MEDS ORDERED: OSELTAMIVIR PHOSPHATE 75 MG CAPSULE ONE (12:12)
[2024-06-07] MEDS: SODIUM CHLORIDE 0.9% 500 ML INFUS.BAG IV ONE (12:14)
[2024-06-07] MEDS: OSELTAMIVIR PHOSPHATE 75 MG CAPSULE PO ONE (12:14)
[2024-06-07] MEDS: ALBUTEROL SO4 0.083% IH SOL 2.5 MG/3 ML VIAL.NEB. NEB ONE (18:21)
[2024-06-07] MEDS: methylPREDNISolone NA SUCC 40 MG/1 ML VIAL IVPUSH SCH (18:21)
[2024-06-07] MEDS: SODIUM CHLORIDE 1,000 ML IV SCH (20:00)
[2024-06-07] MEDS ORDERED: OSELTAMIVIR PHOSPHATE 45 MG CAPSULE PO SCH (22:00)
[2024-06-07] MEDS: INSULIN ASPART SLIDING SCALE (NOVOLOG) 1 VIAL SQ SCH (22:05)
[2024-06-08] MEDS: EMPAGLIFLOZIN (JARDIANCE) 10 MG TABLET PO SCH (07:22)
[2024-06-08 07:42] VITALS: RESP 18
[2024-06-08 08:43] LABS: HEMATOCRIT 27.4 % (32.4-45.2); HEMOGLOBIN 8.6 GM/dL (10.7-15.3); MCHC 31.3 g/dl (32.0-36.0); MEAN CELL VOLUME 83.2 fl (80-96); MEAN PLT VOLUME 8.5 fl (7.5-11.1); PLATELET COUNT 343 10^3/uL (134-434); POTASSIUM 5.2 mmol/L (3.5-5.1); RBC 3.29 M/mm3 (3.60-5.2); RDW 16.8 % (11.6-15.6); WHITE BLOOD COUNT 8.8 K/mm3 (4.0-10.0)
[2024-06-08 08:54] LABS: CALCIUM 9.4 mg/dL (8.5-10.1)
[2024-06-08 08:55] LABS: ALBUMIN 2.8 g/dl (3.4-5.0); BLOOD UREA NITROGEN 28.3 mg/dL (7-18); MAGNESIUM 2.3 mg/dL (1.8-2.4)
[2024-06-08 08:59] LABS: BILIRUBIN,TOTAL 0.1 mg/dL (0.2-1); CREATININE 1.8 mg/dL (0.55-1.3); TOT PROT 8.7 g/dl (6.4-8.2)
[2024-06-08] MEDS: ASPIRIN COATED 81 MG TABLET.EC PO SCH (09:51)
[2024-06-08] MEDS: NIFEdipine E.R. 90 MG TABLET PO SCH (09:51)
[2024-06-08] MEDS: OSELTAMIVIR PHOSPHATE 30 MG CAPSULE PO SCH (09:52)
[2024-06-08 11:06] LABS: ANISOCYTOSIS 0; HELMET CELLS 0; HOWELL-JOLLY BODIES 0; MACROCYTOSIS 0; OVALOCYTE 0; ROULEAU 0; SICKELED CELLS 0; TARGET CELLS 0; TEAR DROP CELLS 0; TOXIC GRANULATION 0
[2024-06-08] MEDS: ACETAMINOPHEN 325 MG TABLET (FP) PO PRN (12:30)
[2024-06-08] MEDS: SODIUM ZIRCONIUM CYCLOSILICATE (LOKELMA) 5 GM PACKET PO SCH (14:29)
[2024-06-08] MEDS: ALBUTEROL SO4 2.5/IPRATROPIUM 0.5 INH SOL 3 ML VIAL.NEB. NEB SCH (17:07)
[2024-06-08 17:13] LABS: EPI CELLS >36 /uL (0-25.1); HYALINE CASTS 2 /uL (0-3.1); URINE APPEARANCE TURBID; URINE BACTERIA >9,000 /uL (0-1359); URINE BILIRUBIN NEGATIVE (NEGATIVE); URINE COLOR YELLOW; URINE GLUCOSE (UA) 3+ (NEGATIVE); URINE KETONE NEGATIVE (NEGATIVE); URINE LEUK ESTERASE 3+ (NEGATIVE); URINE NITRITE NEGATIVE (NEGATIVE); URINE PROTEIN 1+ (NEGATIVE); URINE UROBILINOGEN 0.2 mg/dL (0.2-1.0); URINE WBC 4657 /uL (0-25.8)
[2024-06-08 17:36] LABS: URINE RBC 898 /uL (0-23.9); YEAST PRESENT (NEGATIVE)
[2024-06-08 17:38] LABS: URINE CRYSTALS NOT PRESENT /hpf
[2024-06-09 10:26] LABS: HEMATOCRIT 29.4 % (32.4-45.2); HEMOGLOBIN 9.3 GM/dL (10.7-15.3); MCH 26.1 pg (25.7-33.7); MCHC 31.6 g/dl (32.0-36.0); MEAN CELL VOLUME 82.5 fl (80-96); MEAN PLT VOLUME 8.6 fl (7.5-11.1); PLATELET COUNT 384 10^3/uL (134-434); RBC 3.56 M/mm3 (3.60-5.2); RDW 17.2 % (11.6-15.6); WHITE BLOOD COUNT 12.1 K/mm3 (4.0-10.0)
[2024-06-09 12:13] LABS: POTASSIUM 4.4 mmol/L (3.5-5.1)
[2024-06-09 12:18] LABS: BLOOD UREA NITROGEN 35.3 mg/dL (7-18)
[2024-06-09 12:23] LABS: BILIRUBIN,TOTAL 0.2 mg/dL (0.2-1); CALCIUM 9.4 mg/dL (8.5-10.1); MAGNESIUM 2.1 mg/dL (1.8-2.4); TOT PROT 9.3 g/dl (6.4-8.2)
[2024-06-09 12:26] LABS: CREATININE 1.8 mg/dL (0.55-1.3)
[2024-06-10 06:38] VITALS: TEMP 98.6
[2024-06-10 14:52] VITALS: BP 141/72; PULSE 88
== END 2024-06-10 16:35 | disposition home health service (06) | DRG 113 ==
LOC: JER 08:19 → JERBED 10:59 → OBSVTOIN 13:48 → J8W 06-08 00:26
PROVIDERS: ADMIT Family Medicine; ATTEND Family Medicine
DX: J10.1 Influenza due to other identified influenza virus with other respiratory manifestations (principal); E11.22 Type 2 diabetes mellitus with diabetic chronic kidney disease; R91.1 Solitary pulmonary nodule; E05.90 Thyrotoxicosis, unspecified without thyrotoxic crisis or storm; R91.8 Other nonspecific abnormal finding of lung field; N13.9 Obstructive and reflux uropathy, unspecified; I12.9 Hypertensive chronic kidney disease with stage 1 through stage 4 chronic kidney disease, or unspecified chronic kidney disease; N18.9 Chronic kidney disease, unspecified; I69.354 Hemiplegia and hemiparesis following cerebral infarction affecting left non-dominant side; Z95.0 Presence of cardiac pacemaker
CPT/HCPCS: 0241U-QW; 36415; 71046-TC-FY; 71250-TC; 80053; 81003; 82272; 82962; 83036; 83540; 83550; 83735; 84443; 84484; 85025; 85027; 87086; 87186; 93005; 93010; 94640; 99285-25; G0378; J0131